=== PATIENT | male | born 1965 | race African-American/Black ===

== ENCOUNTER 2017-03-16 10:40 | Day surgery (SDC) | payer MEDICAID ==
[~2017-03-16 10:40] MED LIST: PROPOFOL INJ 200 MG/20 ML VIAL IV ONE
[2017-03-16] MEDS ORDERED: ALBUTEROL SULFATE 0.083% NEB 2.5 MG/3 ML AMPUL NEB ONE (11:52)
[2017-03-16] MEDS ORDERED: FENTANYL CITRATE INJ/PF 100 MCG/2 ML AMPUL ONE (11:55)
[2017-03-16] MEDS ORDERED: MIDAZOLAM 2 MG/2 ML INJ ONE (11:55)
[2017-03-16 12:56] VITALS: BP 170/106
--- NOTE | 2017-03-16 13:19 | Operative Report ---
Operative Report DATE OF SURGERY: 03/16/17 Operative Report: The risks, benefits and alternatives of the procedure including risks of bleeding, perforation requiring surgery are explained to the patient detail and informed consent was obtained. Patient was taken back to the endoscopy suite and placed in the left, lateral decubital position. Timeout was called. Performed medications administered. A rectal examination was done which did not reveal any masses, tears or fissures. An Olympus endoscope was inserted into the patient's rectum. The scope was then carefully advanced all the way to the cecum. The cecum was identified by the usual anatomical landmarks including the ileocecal valve as well as the appendiceal office. Photodocumentation was obtained. The scope was then sequentially pulled back via the rest segments of the colon including the ascending colon, hepatic flexure, transverse colon, splenic flexure, descending colon and finding to the rectosigmoid portions of the colon. Retroflexion maneuver was performed. The risks benefits and alternatives of the procedure explained to the patient in detail and informed consent is obtained. A GIF Olympus video scope was inserted into the patient's mouth and hypopharynx, the esophagus is identified intubated and insufflated, the scope was then advanced through the esophagus stomach and duodenum, retroflexion maneuver is done, the esophagus stomach and first and second portions of the duodenum examined PREOPERATIVE DIAGNOSIS: Dysphagia. Change of bowel habits POSTOPERATIVE DIAGNOSIS: Sigmoid polyp removed via snare polypectomy. Right side mucosal specimen obtained on the ascending colon rule out lymphocytic, microscopic, collagenous colitis. Internal hemorrhoids. Gastritis. Duodenitis. Biopsies obtained to rule out Helicobacter pylori OPERATION: Colonoscopy with snare polypectomy. Colonoscopy with biopsy. EGD with biopsy SURGEON: OSCAR LUNA ANESTHESIA: LMAC TISSUE REMOVED OR ALTERED: As described above. COMPLICATIONS: None. ESTIMATED BLOOD LOSS: None. INTRAOPERATIVE FINDINGS: As noted above. No diverticulosis noted PROCEDURE: Patient tolerated the procedure well. No immediate postprocedure complications are noted. Patient discharged in good condition. Discharge date 03/16/2017. Discharge diet: Regular. Discharge activity: Regular. 2-3 week follow-up to discuss findings. Patient is instructed to call the office or proceed to the emergency room should there be any further problems or questions. We will wait on pathology. 3-5 year surveillance for his colonoscopy.
== END 2017-03-16 12:50 | disposition home or self-care (01) ==
LOC: END 10:40
PROVIDERS: ATTEND Internal Medicine Gastroenterology
PROC: 0DB68ZX Excision of Stomach, Via Natural or Artificial Opening Endoscopic, Diagnostic (ICD-10-PCS; principal; 2017-03-16 13:30)
PROC: 0DBF8ZX Excision of Right Large Intestine, Via Natural or Artificial Opening Endoscopic, Diagnostic (ICD-10-PCS; 2017-03-16 13:30)
PROC: 0DBN8ZX Excision of Sigmoid Colon, Via Natural or Artificial Opening Endoscopic, Diagnostic (ICD-10-PCS; 2017-03-16 13:30)
DX: D12.5 Benign neoplasm of sigmoid colon (principal); K52.9 Noninfective gastroenteritis and colitis, unspecified; K29.50 Unspecified chronic gastritis without bleeding; K64.8 Other hemorrhoids; K29.80 Duodenitis without bleeding; M06.9 Rheumatoid arthritis, unspecified; I10 Essential (primary) hypertension; K21.9 Gastro-esophageal reflux disease without esophagitis; F17.210 Nicotine dependence, cigarettes, uncomplicated; J45.909 Unspecified asthma, uncomplicated; D86.9 Sarcoidosis, unspecified; F41.9 Anxiety disorder, unspecified; Z79.51 Long term (current) use of inhaled steroids; Z88.6 Allergy status to analgesic agent
CPT/HCPCS: 43239; 45380; 45385; 88305 ×2; J2250; J2704; 810; J3010

== ENCOUNTER → 2017-04-24 | Outpatient (CLI) | payer MEDICAID ==
--- NOTE | 2017-04-24 15:49 | RADIOLOGY REPORT (SQ) ---
EXAM DESCRIPTION: HIP LEFT AP/LATERAL COMPLETED DATE/TIME: 04/24/2017 2:37 pm REASON FOR STUDY: PAIN IN LEFT HIP M25.552 PAIN IN LEFT HIP COMPARISON: None. NUMBER OF VIEWS: Two views. TECHNIQUE: AP pelvis and additional frog-leg view of the left hip. LIMITATIONS: None. FINDINGS: MINERALIZATION: Normal. LEFT HIP: No fracture or dislocation. No worrisome bone lesions. Small sclerotic density in the sub trochanteric region consistent with bone island. RIGHT HIP: No fracture or dislocation. No worrisome bone lesions. PUBIS AND ISCHIUM: No fracture. PELVIS: No fracture. SACRUM: No fracture or dislocation. No worrisome bone lesions. LOWER LUMBAR SPINE: No fracture or dislocation. No worrisome bone lesions. No significant disc disea se. SOFT TISSUES: No findings. OTHER: No other significant finding. IMPRESSION: No significant abnormalities involving the left hip. TECHNICAL DOCUMENTATION: JOB ID: [id number] [employer]- All Rights Reserved
== END ==
LOC: OD 13:39
PROVIDERS: ATTEND Family Medicine
DX: M25.552 Pain in left hip (principal)

== ENCOUNTER 2017-09-14 14:40 | Emergency (ER) | payer MEDICAID ==
--- NOTE | 2017-09-14 15:55 | ER Document Report ---
ED General - General Chief Complaint: Hand Pain Stated Complaint: HAND,LEG PAIN Time Seen by Provider: 09/14/17 15:47 Mode of Arrival: Ambulatory Information source: Patient Notes: Patient states that he has chronic sarcoidosis. He states he is having a flareup of his chronic pain. He states he is currently out of his blood pressure medication as well as his pain medication. He specifically states he is out of lisinopril and Norvasc as well as Percocet. He states he does have hydrochlorothiazide. He states the pain in his right hand and left hip have been constant. They have been there for several months. He states he has had x -rays done by his primary care physician and no abnormality was identified on the x-ray. He has then been referred to [facility]. He states he is currently having trouble with his insurance so is been unable to see his doctor. He states he is going to the [employer] tomorrow to straighten out the insurance issues that he can be seen by his primary doctor. The pain radiates down his left leg and into his right arm. The pain is worse with movement and better with rest. They are moderate to severe. TRAVEL OUTSIDE OF THE [place] IN LAST 30 DAYS: No - Related Data Allergies/Adverse Reactions: aspirin [Aspirin] Allergy (Severe, Verified 03/16/17 11:04) RASH/itching Past Medical History - General Information source: Patient - Social History Smoking Status: Current Every Day Smoker Chew tobacco use (# tins/day): No Frequency of alcohol use: Occasional Drug Abuse: Marijuana Family History: Reviewed & Not Pertinent, Arthritis, CAD, CVA, DM, Hypertension , Malignancy Patient has suicidal ideation: No Patient has homicidal ideation: No - Past Medical History Cardiac Medical History: Reports: Hx Hypertension Denies: Hx Coronary Artery Disease, Hx Heart Attack Pulmonary Medical History: Reports: Hx Asthma Denies: Hx Bronchitis, Hx COPD, Hx Pneumonia Neurological Medical History: Denies: Hx Cerebrovascular Accident, Hx Seizures Renal/ Medical History: Denies: Hx Peritoneal Dialysis Musculoskeltal Medical History: Reports Hx Arthritis - SARCOIDOSIS, Reports Hx Musculoskeletal Trauma Skin Medical History: Reports Hx Psoriasis Traumatic Medical History: Reports: Hx Fractures Past Surgical History: Reports: Hx Tonsillectomy - Immunizations Immunizations up to date: Yes Hx Diphtheria, Pertussis, Tetanus Vaccination: Yes - <5 years Hx Pneumococcal Vaccination: 05/31/14 Review of Systems - Review of Systems Constitutional: denies: Chills, Fever Cardiovascular: denies: Chest pain, Palpitations Respiratory: denies: Cough, Short of breath Gastrointestinal: denies: Diarrhea, Vomiting Physical Exam - Vital signs Vitals: Temp Pulse Resp BP Pulse Ox 97.7 F 83 16 173/113 H 99 09/14/17 14:49 09/14/17 14:49 09/14/17 14:49 09/14/17 14:49 09/14/17 14:49 Interpretation: Hypertensive - General General appearance: Appears well, Alert In distress: None - HEENT Head: Normocephalic, Atraumatic Eyes: Normal Pupils: PERRL - Respiratory Respiratory status: No respiratory distress Chest status: Nontender Breath sounds: Normal Chest palpation: Normal - Cardiovascular Rhythm: Regular Heart sounds: Normal auscultation Murmur: No - Abdominal Inspection: Normal Distension: No distension Bowel sounds: Normal Tenderness: Nontender Organomegaly: No organomegaly - Back Back: Normal, Nontender - Extremities General upper extremity: Nontender, Normal color, Normal temperature, Other - Patient has some localized swelling on the right hand on the dorsal aspect of the thenar eminence. This area is nontender. He states this is due to sarcoid deposits. General lower extremity: Nontender, Normal color, Normal ROM, Normal temperature , Normal weight bearing. No: Curt's sign - Neurological Neuro grossly intact: Yes Cognition: Normal Orientation: AAOx4 Delfino Coma Scale Eye Opening: Spontaneous [place]ham Coma Scale Verbal: Oriented Delifno Coma Scale Motor: Obeys Commands Delfino Coma Scale Total: 15 Speech: Normal Motor strength normal: LUE, RUE, LLE, RLE Sensory: Normal - Psychological Associated symptoms: Normal affect, Normal mood - Skin Skin Temperature: Warm Skin Moisture: Dry Skin Color: Normal Course - Vital Signs Vital signs: Temp Pulse Resp BP Pulse Ox 97.7 F 83 16 173/113 H 99 09/14/17 14:49 09/14/17 14:49 09/14/17 14:49 09/14/17 14:49 09/14/17 14:49 Discharge - Discharge Clinical Impression: Sarcoid arthritis Condition: Stable Disposition: HOME, SELF-CARE Instructions: [facility] ([facility] Additional Instructions: Please call your primary care doctor as soon as possible to arrange follow-up. Prescriptions: Amlodipine Besylate [Norvasc 10 mg Tablet] 10 mg PO DAILY #30 tablet Lisinopril 10 mg PO DAILY #30 tablet Oxycodone HCl/Acetaminophen [Percocet 5-325 mg Tablet] 1 - 2 tab PO Q4H PRN #15 tablet PRN Reason:
[2017-09-14 16:05] VITALS: BP 170/100
== END 2017-09-14 16:03 | disposition home or self-care (01) ==
LOC: ER 14:40
DX: D86.86 Sarcoid arthropathy (principal); G89.29 Other chronic pain; T40.2X6A Underdosing of other opioids, initial encounter; I10 Essential (primary) hypertension; T46.1X6A Underdosing of calcium-channel blockers, initial encounter; T46.4X6A Underdosing of angiotensin-converting-enzyme inhibitors, initial encounter; Z91.128 Patient's intentional underdosing of medication regimen for other reason; Z91.14 Patient's other noncompliance with medication regimen; F17.200 Nicotine dependence, unspecified, uncomplicated; Z79.899 Other long term (current) drug therapy; Z88.6 Allergy status to analgesic agent; J45.909 Unspecified asthma, uncomplicated
CPT/HCPCS: 99283

== ENCOUNTER 2017-09-29 13:17 | Emergency (ER) | payer MEDICAID ==
[2017-09-29 13:34] VITALS: BP 164/100
--- NOTE | 2017-09-29 15:03 | ER Document Report ---
HPI - HPI Patient complains to provider of: med refills Onset: Other - Chronic Onset/Duration: Persistent Quality of pain: Achy, Sharp Severity: Severe Pain Level: 5 Context: She presented to ED for complaint of pain in his hand and leg. He states this is the pain that he always has due to his chronic conditions but he cannot get into the primary doctor. He states he did not want any Tylenol he did not want any ibuprofen he needs something stronger than that. I explained to him that I cannot give him narcotics for chronic pain management I would try to set him up with discharge planning to try to get him in to see a doctor for his chronic problems. Associated Symptoms: Other - Chronic pain to his arm and leg Exacerbated by: Movement, Walking Relieved by: Denies Similar symptoms previously: Yes Recently seen / treated by doctor: No - ROS ROS below otherwise negative: Yes - CONSTITUTIONAL Constitutional: DENIES: Fever, Chills - EENT EENT: DENIES: Sore Throat, Ear Pain, Nasal Drainage-Clear, Nasal Drainage- Purulent, Congestion, Eye problems - NEURO Neurology: DENIES: Headache, Weakness, Vision blurred, Dizzinesss / Vertigo - CARDIOVASCULAR Cardiovascular: DENIES: Chest pain - RESPIRATORY Respiratory: DENIES: Trouble Breathing, Coughing - GASTROINTESTINAL Gastrointestinal: DENIES: Abdominal Pain, Nausea, Patient vomiting, Diarrhea, Constipation, Black / Bloody Stools - URINARY Urinary: DENIES: Dysuria, Urgency, Frequency - REPRODUCTIVE Reproductive: DENIES: :, Postmenopausal, Abnormal bleeding / discharge - MUSCULOSKELETAL Musculoskeletal: REPORTS: Extremity pain. DENIES: Back Pain, Neck Pain, Swelling - DERM Skin Color: Normal Skin Problems: None Past Medical History - General Information source: Patient - Social History Smoking Status: Current Every Day Smoker Cigarette use (# per day): Yes Smoking Education Provided: Yes - 4 minutes Frequency of alcohol use: Rare Drug Abuse: Marijuana Family History: Arthritis, CAD, CVA, DM, Hypertension, Malignancy. denies: COPD , Hyperlipidemia, Thyroid Disfunction Patient has suicidal ideation: No Patient has homicidal ideation: No - Past Medical History Cardiac Medical History: Reports: Hx Hypertension Pulmonary Medical History: Reports: Hx Asthma EENT Medical History: Reports: None Neurological Medical History: Reports: None Endocrine Medical History: Reports: None Renal/ Medical History: Reports: None Malignancy Medical History: Reports None GI Medical History: Reports: None Musculoskeltal Medical History: Reports Hx Arthritis - SARCOIDOSIS, Reports Hx Musculoskeletal Deformity, Reports Hx Musculoskeletal Trauma Skin Medical History: Reports Hx Psoriasis Psychiatric Medical History: Reports: None Traumatic Medical History: Reports: Hx Fractures Infectious Medical History: Reports: None Past Surgical History: Reports: Hx Tonsillectomy - Immunizations Immunizations up to date: Yes Hx Diphtheria, Pertussis, Tetanus Vaccination: Yes - <5 years Hx Pneumococcal Vaccination: 05/31/14 Vertical Provider Document - CONSTITUTIONAL Agree With Documented VS: Yes Exam Limitations: No Limitations General Appearance: WD/WN, Mild Distress - INFECTION CONTROL TRAVEL OUTSIDE OF THE [place] IN LAST 30 DAYS: No - HEENT HEENT: Atraumatic, Normal ENT Exam, Normocephalic, PERRLA - NECK Neck: Normal Inspection, Supple - RESPIRATORY Respiratory: Breath Sounds Normal, No Respiratory Distress O2 Sat by Pulse Oximetry: 98 - CARDIOVASCULAR Cardiovascular: Regular Rate, Regular Rhythm - GI/ABDOMEN Gastrointestinal: Abdomen Soft, Abdomen Non-Tender, Abnormal Bowel Sounds - BACK Back: Normal Inspection - MUSCULOSKELETAL/EXTREMETIES Musculoskeletal/Extremeties: MAEW - Walks with a cane but this is normal complains of pain to his arms and legs and hands, Tender, No Edema - NEURO Level of Consciousness: Awake, Alert, Appropriate - DERM Integumentary: Warm, Dry, No Rash Course - Re-evaluation Re-evalutation: 09/30/17 02:02 Patient became very angry with the nurse when he found that he was not going get narcotics and left before getting his discharge papers. - Vital Signs Vital signs: Temp Pulse Resp BP Pulse Ox 98.3 F 77 20 164/100 H 98 09/29/17 13:32 09/29/17 13:32 09/29/17 13:32 09/29/17 13:32 09/29/17 13:32 Discharge - Discharge Clinical Impression: Medication refill Condition: Stable Disposition: HOME, SELF-CARE Additional Instructions: He was seen today because you stated you need your medications for your pain and your doctor visits for your sarcoidosis as you are having trouble seeing your doctor I will set you up with a sr. merchandise planner to call you and try to help you work of the problems with your primary doctor. He states today you are having pain in your hands and legs due to chronic pain from sarcoidosis. He states he needs surgery to help you with your sarcoidosis. You states you have enough lisinopril and prednisone at this time to last you but you need your pain medicine. I have asked discussed with you that I cannot give you narcotics for chronic pain management. FOLLOW-UP CARE: If you have been referred to a physician for follow-up care, call the physician s office for an appointment as you were instructed or within the next two days. If you experience worsening or a significant change in your symptoms, notify the physician immediately or return to the Emergency Department at any time for re-evaluation. Forms: Elevated Blood Pressure, Smoking Cessation Education
== END 2017-09-29 15:12 | disposition home or self-care (01) ==
LOC: ER 13:17
DX: Z76.0 Encounter for issue of repeat prescription (principal); M79.603 Pain in arm, unspecified; M79.606 Pain in leg, unspecified; F17.210 Nicotine dependence, cigarettes, uncomplicated; Z79.899 Other long term (current) drug therapy
CPT/HCPCS: 99281; 99406

== ENCOUNTER 2017-10-14 09:56 | Emergency (ER) | payer MEDICAID ==
[2017-10-14 11:26] LABS: ABSOLUTE EOSINOPHILS # (AUTO) 0.1 10^3/uL (0.0-0.6); ABSOLUTE LYMPHOCYTES (AUTO) 1.2 10^3/uL (0.5-4.7); ABSOLUTE MONOCYTES (AUTO) 0.5 10^3/uL (0.1-1.4); ABSOLUTE NEUT (AUTO) 1.4 10^3/uL (1.7-8.2); BASOPHILS % (AUTO) 0.7 % (0-2); EOSINOPHILS % (AUTO) 4.3 % (0-6); HEMATOCRIT 39.3 % (37.9-51.0); HEMOGLOBIN 13.5 g/dL (13.5-17.0); LYMPHOCYTES % (AUTO) 36.4 % (13-45); MEAN CORPUSCULAR HEMOGLOBIN 30.6 pg (27.0-33.4); MEAN CORPUSCULAR HGB CONC 34.4 g/dL (32.0-36.0); MEAN CORPUSCULAR VOLUME 89 fl (80-97); MONOCYTES % (AUTO) 15.2 % (3-13); PLATELET COUNT 126 10^3/uL (150-450); RED BLOOD COUNT 4.42 10^6/uL (4.35-5.55); RED CELL DISTRIBUTION WIDTH 12.9 % (11.5-14.0); SEGMENTED NEUTROPHILS % (AUTO) 43.4 % (42-78); TOTAL CELLS COUNTED % (AUTO) 100 %; WHITE BLOOD COUNT 3.3 10^3/uL (4.0-10.5)
[2017-10-14 11:47] LABS: ALANINE AMINOTRANSFERASE 34 U/L (21-72); ALBUMIN 4.3 g/dL (3.5-5.0); ALKALINE PHOSPHATASE 60 U/L (38-126); ANION GAP 9 (5-19); ASPARTATE AMINO TRANSFERASE 32 U/L (17-59); BILIRUBIN,DIRECT 0.4 mg/dL (0.0-0.4); BILIRUBIN,TOTAL 0.4 mg/dL (0.2-1.3); BLOOD UREA NITROGEN 20 mg/dL (7-20); CALCIUM 9.9 mg/dL (8.4-10.2); CARBON DIOXIDE 26 mmol/L (22-30); CHLORIDE 107 mmol/L (98-107); GLUCOSE 99 mg/dL (75-110); POTASSIUM 4.3 mmol/L (3.6-5.0); SODIUM 141.6 mmol/L (137-145); TOTAL PROTEIN 7.4 g/dL (6.3-8.2)
--- NOTE | 2017-10-14 12:47 | ER Document Report ---
ED General - General Chief Complaint: Pain All Over Stated Complaint: BODY PAIN Time Seen by Provider: 10/14/17 11:00 Mode of Arrival: Ambulatory Information source: Patient Notes: Patient presents stating that he is having diffuse body aches from his sarcoid. He states his pain is worse with exertion and better with rest. He states it does radiate throughout his body. It is moderate and intermittent. He denies any recent fevers cough cold or congestion. He states he does not currently have a primary care physician. He states he is trying to get an appointment with a early childhood educator aide to manage his sarcoid has been unable to do so so far. TRAVEL OUTSIDE OF THE [place] IN LAST 30 DAYS: No - Related Data Allergies/Adverse Reactions: aspirin [Aspirin] Allergy (Severe, Verified 10/14/17 09:58) RASH/itching Past Medical History - General Information source: Patient - Social History Smoking Status: Current Every Day Smoker Chew tobacco use (# tins/day): No Frequency of alcohol use: Occasional Drug Abuse: Marijuana Family History: Arthritis, CAD, CVA, DM, Hypertension, Malignancy. denies: COPD , Hyperlipidemia, Thyroid Disfunction Patient has suicidal ideation: No Patient has homicidal ideation: No - Past Medical History Cardiac Medical History: Reports: Hx Hypertension Denies: Hx Coronary Artery Disease, Hx Heart Attack Pulmonary Medical History: Reports: Hx Asthma Denies: Hx Bronchitis, Hx COPD, Hx Pneumonia Neurological Medical History: Denies: Hx Cerebrovascular Accident, Hx Seizures Renal/ Medical History: Denies: Hx Peritoneal Dialysis Musculoskeltal Medical History: Reports Hx Arthritis - SARCOIDOSIS, Reports Hx Musculoskeletal Deformity, Reports Hx Musculoskeletal Trauma Skin Medical History: Reports Hx Psoriasis Traumatic Medical History: Reports: Hx Fractures Past Surgical History: Reports: Hx Tonsillectomy - Immunizations Immunizations up to date: Yes Hx Diphtheria, Pertussis, Tetanus Vaccination: Yes - <5 years Hx Pneumococcal Vaccination: 05/31/14 Review of Systems - Review of Systems Constitutional: denies: Chills, Fever Cardiovascular: denies: Chest pain, Palpitations Respiratory: Cough. denies: Short of breath -: Yes All other systems reviewed and negative Physical Exam - Vital signs Vitals: Temp Pulse Resp BP Pulse Ox 97.9 F 62 18 176/117 H 99 10/14/17 10:13 10/14/17 10:13 10/14/17 10:13 10/14/17 10:13 10/14/17 10:13 Interpretation: Hypertensive Course - Re-evaluation Re-evalutation: 10/14/17 12:43 Patient's laboratories are unremarkable for acute changes. I will refer the patient to her primary care physician. I will also start the patient on a second blood pressure medication as well as give him a refill of his lisinopril. - Vital Signs Vital signs: Temp Pulse Resp BP Pulse Ox 97.9 F 62 18 176/117 H 99 10/14/17 10:13 10/14/17 10:13 10/14/17 10:13 10/14/17 10:13 10/14/17 10:13 - Laboratory Result Diagrams: 10/14/17 11:15 10/14/17 11:15 Laboratory results interpreted by me: 10/14/17 11:15 WBC 3.3 L Plt Count 126 L Monocytes % 15.2 H Absolute Neutrophils 1.4 L Discharge - Discharge Clinical Impression: Sarcoidosis, Uncontrolled hypertension Condition: Stable Disposition: HOME, SELF-CARE Instructions: High Blood Pressure, Requiring Treatment ([facility]) Prescriptions: Hydrocodone/Acetaminophen [Torrey 5-325 mg Tablet] 1 tab PO Q6 PRN 3 Days #12 tablet PRN Reason: Lisinopril/Hydrochlorothiazide [Lisinopril-Hctz 20-12.5 mg Tab] 1 each PO DAILY 30 Days #30 tablet Referrals: BERTIN NIETO MD [ACTIVE STAFF] - Follow up tomorrow
[2017-10-14 13:01] VITALS: BP 188/109
[2017-10-14] MEDS ORDERED: LISINOPRIL 10 MG TABLET PO ONE (13:01)
== END 2017-10-14 13:01 | disposition home or self-care (01) ==
LOC: ER 09:56
DX: D86.9 Sarcoidosis, unspecified (principal); I10 Essential (primary) hypertension; M79.1 Myalgia; F17.200 Nicotine dependence, unspecified, uncomplicated; Z88.6 Allergy status to analgesic agent
CPT/HCPCS: 99283; 36415; 85025; 80053; J3490

== ENCOUNTER 2017-11-01 17:13 | Emergency (ER) | payer MEDICAID ==
[2017-11-01] MEDS ORDERED: NORMAL SALINE 1000 ML 1,000 ML IV ONE (17:59)
[2017-11-01] MEDS ORDERED: ONDANSETRON HCL INJ/PF 4 MG/2 ML SDV IV ONE (18:00)
[2017-11-01] MEDS ORDERED: FENTANYL CITRATE INJ/PF 250 MCG/5 ML AMPULE IV ONE (18:01)
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
[2017-11-01] MEDS ORDERED: FENTANYL CITRATE INJ/PF 100 MCG/2 ML AMPUL IV ONE (18:17)
[2017-11-01 18:24] LABS: ABSOLUTE LYMPHOCYTES (AUTO) 1.1 10^3/uL (0.5-4.7); ABSOLUTE MONOCYTES (AUTO) 0.3 10^3/uL (0.1-1.4); ABSOLUTE NEUT (AUTO) 7.4 10^3/uL (1.7-8.2); BASOPHILS % (AUTO) 0.3 % (0-2); HEMATOCRIT 34.7 % (37.9-51.0); HEMOGLOBIN 11.9 g/dL (13.5-17.0); LYMPHOCYTES % (AUTO) 12.4 % (13-45); MEAN CORPUSCULAR HEMOGLOBIN 30.7 pg (27.0-33.4); MEAN CORPUSCULAR HGB CONC 34.4 g/dL (32.0-36.0); MEAN CORPUSCULAR VOLUME 89 fl (80-97); MONOCYTES % (AUTO) 3.5 % (3-13); PLATELET COUNT 196 10^3/uL (150-450); RED BLOOD COUNT 3.89 10^6/uL (4.35-5.55); RED CELL DISTRIBUTION WIDTH 13.2 % (11.5-14.0); SEGMENTED NEUTROPHILS % (AUTO) 83.8 % (42-78); TOTAL CELLS COUNTED % (AUTO) 100 %; WHITE BLOOD COUNT 8.9 10^3/uL (4.0-10.5)
[2017-11-01 18:39] LABS: ALANINE AMINOTRANSFERASE 52 U/L (21-72); ALBUMIN 4.7 g/dL (3.5-5.0); ALKALINE PHOSPHATASE 81 U/L (38-126); ANION GAP 13 (5-19); ASPARTATE AMINO TRANSFERASE 45 U/L (17-59); BILIRUBIN,DIRECT 0.4 mg/dL (0.0-0.4); BLOOD UREA NITROGEN 17 mg/dL (7-20); CALCIUM 9.6 mg/dL (8.4-10.2); CARBON DIOXIDE 24 mmol/L (22-30); CHLORIDE 107 mmol/L (98-107); GLUCOSE 142 mg/dL (75-110); LIPASE 106.9 U/L (23-300); POTASSIUM 4.7 mmol/L (3.6-5.0); SODIUM 143.8 mmol/L (137-145); TOTAL PROTEIN 7.7 g/dL (6.3-8.2)
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
[2017-11-01] MEDS ORDERED: ACETAMINOPHEN 325 MG TABLET PO ONE (19:33)
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
--- NOTE | 2017-11-01 20:28 | RADIOLOGY REPORT (SQ) ---
EXAM DESCRIPTION: CT HEAD WITHOUT COMPLETED DATE/TIME: 11/01/2017 8:14 pm REASON FOR STUDY: head trauma COMPARISON: None. TECHNIQUE: Axial images acquired through the brain without intravenous contrast. Images reviewed wi th bone, brain and subdural windows. Images stored on PACS. All CT scanners at this facility use dose modulation, iterative reconstruction, and/or weight based d osing when appropriate to reduce radiation dose to as low as reasonably achievable (ALARA). [facility]: Dose Right [facility]: CareDose [facility]: Dose Right [facility]: Teradose 4D [facility]: [employer] RADIATION DOSE: CT Rad equipment meets quality standard of care and radiation dose reduction techniq ues were employed. CTDIvol: 64.6 mGy. DLP: 1163 mGy-cm. mGy. LIMITATIONS: None. FINDINGS: VENTRICLES: Normal size and contour. CEREBRUM: No masses. No hemorrhage. No midline shift. No evidence for acute infarction. Normal gra y/white matter differentiation. No areas of low density in the white matter. CEREBELLUM: No masses. No hemorrhage. No alteration of density. No evidence for acute infarction. EXTRAAXIAL SPACES: No fluid collections. No masses. ORBITS AND GLOBE: No intra- or extraconal masses. Normal contour of globe without masses. CALVARIUM: No fracture. PARANASAL SINUSES: No fluid or mucosal thickening. SOFT TISSUES: No mass or hematoma. OTHER: No other significant finding. IMPRESSION: NORMAL BRAIN CT WITHOUT CONTRAST. EVIDENCE OF ACUTE STROKE: NO. COMMENT: Quality ID # [id number]: Final reports with documentation of one or more dose reduction techniques (e.g., Automated exposure control, adjustment of the mA and/or kV according to patient size, use of iterative reconstruction technique) TECHNICAL DOCUMENTATION: JOB ID: [id number] [employer]- All Rights Reserved Reading location - IP/workstation name: [email or web address]
--- NOTE | 2017-11-01 20:39 | RADIOLOGY REPORT (SQ) ---
EXAM DESCRIPTION: CT ABD/PELVIS WITH IV ONLY COMPLETED DATE/TIME: 11/01/2017 8:14 pm REASON FOR STUDY: trauma, diffuse abd tenderness COMPARISON: None. TECHNIQUE: CT scan of the abdomen and pelvis performed using helical scanning technique with dynamic intravenous contrast injection. No oral contrast. Images reviewed with lung, soft tissue, and bone windows. Reconstructed coronal and sagittal MPR images reviewed. Delayed images for evaluation of the urinary system also acquired. All images stored on PACS. All CT scanners at this facility use dose modulation, iterative reconstruction, and/or weight based d osing when appropriate to reduce radiation dose to as low as reasonably achievable (ALARA). [facility]: Dose Right [facility]: CareDose [facility]: Dose Right [facility]: Teradose 4D [facility]: [employer] CONTRAST TYPE AND DOSE: contrast/concentration: Isovue 300.00 mg/ml; Total Contrast Delivered: 97.0 ml; Total Saline Delivered: 72.0 ml RENAL FUNCTION: BUN 17 creatinine 1.6 RADIATION DOSE: CT Rad equipment meets quality standard of care and radiation dose reduction techniq ues were employed. CTDIvol: 6.1 - 8.7 mGy. DLP: 818 mGy-cm.. LIMITATIONS: None. FINDINGS: LOWER CHEST: Trace right pleural effusion and associated airspace disease. LIVER: Normal size. No masses. No dilated ducts. SPLEEN: Normal size. No focal lesions. PANCREAS: No masses. No significant calcifications. No adjacent inflammation or peripancreatic fluid collections. Pancreatic duct not dilated. GALLBLADDER: No identified stones by CT criteria. No inflammatory changes to suggest cholecystitis. ADRENAL GLANDS: No significant masses or asymmetry. RIGHT KIDNEY AND URETER: 6.5 cm heterogeneous fluid collection in the juan renal space displacing kid julio anteriorly. There is blurring of the margins of the lower pole and interpolar cortex. No eviden ce of extravasation of contrast or urine. LEFT KIDNEY AND URETER: No solid masses. No significant calcifications. No hydronephrosis or hydr oureter. AORTA AND VESSELS: No aneurysm. No dissection. Renal arteries, SMA, celiac without stenosis. RETROPERITONEUM: Free fluid in the anterior pararenal space measuring about 31 HU. BOWEL AND PERITONEAL CAVITY: Free fluid surrounding the liver measuring about 39 the HU. APPENDIX: Not visualized. PELVIS: Small amount of free fluid. Normal urinary bladder. ABDOMINAL WALL: No masses. No hernias. BONES: No fracture. OTHER: No other significant finding. IMPRESSION: 1. Grade 3/5 right renal laceration (ASST scale) with expanding subcapsular hematoma. TECHNICAL DOCUMENTATION: JOB ID: [id number] Quality ID # [id number]: Final reports with documentation of one or more dose reduction techniques (e.g., Au tomated exposure control, adjustment of the mA and/or kV according to patient size, use of iterative reconstruction technique) 2010 [employer]- All Rights Reserved Reading location - IP/workstation name: [email or web address]
[2017-11-01] MEDS ORDERED: FENTANYL CITRATE INJ/PF 100 MCG/2 ML AMPUL IV PRN (21:04)
[2017-11-01 22:36] VITALS: BP 147/94
== END 2017-11-01 22:30 | disposition short-term general hospital (02) ==
LOC: ER 17:13
DX: D62 Acute posthemorrhagic anemia (principal); S37.031A Laceration of right kidney, unspecified degree, initial encounter; S00.81XA Abrasion of other part of head, initial encounter; S09.90XA Unspecified injury of head, initial encounter; R10.9 Unspecified abdominal pain; F17.200 Nicotine dependence, unspecified, uncomplicated; Y04.2XXA Assault by strike against or bumped into by another person, initial encounter; Z88.6 Allergy status to analgesic agent; I10 Essential (primary) hypertension
CPT/HCPCS: 99285; 96361; 96374; 96375; 36415; 83690; 85025; 80053; 71045; 70450; 74177; J3490; J3010; J2405; J7030

== ENCOUNTER 2017-11-17 09:57 | Emergency (ER) | payer MEDICAID ==
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
[2017-11-17] MEDS ORDERED: OXYCODONE-ACETAMINOPHEN 5-325 MG TABLET PO ONE (11:14)
[2017-11-17 11:27] LABS: ABSOLUTE EOSINOPHILS # (AUTO) 0.1 10^3/uL (0.0-0.6); ABSOLUTE LYMPHOCYTES (AUTO) 0.9 10^3/uL (0.5-4.7); ABSOLUTE MONOCYTES (AUTO) 0.5 10^3/uL (0.1-1.4); ABSOLUTE NEUT (AUTO) 1.8 10^3/uL (1.7-8.2); BASOPHILS % (AUTO) 0.6 % (0-2); EOSINOPHILS % (AUTO) 2.3 % (0-6); HEMATOCRIT 31.5 % (37.9-51.0); HEMOGLOBIN 10.9 g/dL (13.5-17.0); LYMPHOCYTES % (AUTO) 27.8 % (13-45); MEAN CORPUSCULAR HEMOGLOBIN 31.5 pg (27.0-33.4); MEAN CORPUSCULAR HGB CONC 34.8 g/dL (32.0-36.0); MEAN CORPUSCULAR VOLUME 91 fl (80-97); MONOCYTES % (AUTO) 14.8 % (3-13); PLATELET COUNT 243 10^3/uL (150-450); RED BLOOD COUNT 3.48 10^6/uL (4.35-5.55); SEGMENTED NEUTROPHILS % (AUTO) 54.5 % (42-78); TOTAL CELLS COUNTED % (AUTO) 100 %; WHITE BLOOD COUNT 3.3 10^3/uL (4.0-10.5)
[2017-11-17 11:52] LABS: ANION GAP 8 (5-19); BLOOD UREA NITROGEN 15 mg/dL (7-20); CALCIUM 9.1 mg/dL (8.4-10.2); CARBON DIOXIDE 25 mmol/L (22-30); CHLORIDE 111 mmol/L (98-107); GLUCOSE 87 mg/dL (75-110); POTASSIUM 4.4 mmol/L (3.6-5.0); SODIUM 143.8 mmol/L (137-145)
[2017-11-17 12:19] VITALS: BP 172/108
== END 2017-11-17 12:22 | disposition home or self-care (01) ==
LOC: ER 09:57
DX: G89.29 Other chronic pain (principal); M25.50 Pain in unspecified joint; I10 Essential (primary) hypertension; Z79.899 Other long term (current) drug therapy; D86.9 Sarcoidosis, unspecified; F17.200 Nicotine dependence, unspecified, uncomplicated; J45.909 Unspecified asthma, uncomplicated
CPT/HCPCS: 36415; 80048; 85025; 99283

== ENCOUNTER 2018-07-24 17:15 | Emergency (ER) | payer MEDICAID ==
--- NOTE | 2018-07-24 19:18 | ER Document Report ---
ED Medical Screen (RME) - General Chief Complaint: Swelling Stated Complaint: SWELLING Time Seen by Provider: 07/24/18 19:11 Mode of Arrival: Ambulatory Information source: Patient Notes: 52-year-old male presented to ED for complaint of swelling and pain to his right hand and left lower extremities. He states he had his Medicaid stopped a couple months ago so has not been able to keep his appointments with [facility] or his chronic pain management. He states he did get paperwork and he is getting it all reinstated so he can follow-up with his doctors. He states he is here today because his blood pressure is going up and he is taking his blood pressure medicine as ordered he is got swelling to his right hand and left lower extremity and has an increase in his pain. He states he was diagnosed with rheumatoid arthritis and given methotrexate and ended up having a stroke from [facility] to [place] and they told him that he did not have rheumatoid arthritis but had sarcoidosis that does not affect his lungs. He states he is here today because he is in so much pain in his blood pressure is going up. She is alert and oriented respirations are regular and unlabored he is able to speak in full sentences and he walks with a even steady gait. I have greeted and performed a rapid initial assessment of this patient. A comprehensive ED assessment and evaluation of the patient, analysis of test results and completion of medical decision making process will be conducted by an additional ED providers. TRAVEL OUTSIDE OF THE [place] IN LAST 30 DAYS: No - Related Data Allergies/Adverse Reactions: aspirin [Aspirin] Allergy (Severe, Verified 11/17/17 10:01) RASH/itching Past Medical History - Past Medical History Cardiac Medical History: Reports: Hx Hypertension Denies: Hx Coronary Artery Disease, Hx Heart Attack Pulmonary Medical History: Reports: Hx Asthma Denies: Hx Bronchitis, Hx COPD, Hx Pneumonia Neurological Medical History: Denies: Hx Cerebrovascular Accident, Hx Seizures Renal/ Medical History: Denies: Hx Peritoneal Dialysis Musculoskeltal Medical History: Reports Hx Arthritis - SARCOIDOSIS, Reports Hx Musculoskeletal Deformity, Reports Hx Musculoskeletal Trauma Skin Medical History: Reports Hx Psoriasis Traumatic Medical History: Reports: Hx Fractures Past Surgical History: Reports: Hx Tonsillectomy - Immunizations Immunizations up to date: Yes Hx Diphtheria, Pertussis, Tetanus Vaccination: Yes - <5 years Physical Exam - Vital signs Vitals: Temp Pulse Resp BP Pulse Ox 97.6 F 78 18 157/104 H 97 07/24/18 17:20 07/24/18 17:20 07/24/18 17:20 07/24/18 17:20 07/24/18 17:20 Course - Vital Signs Vital signs: Temp Pulse Resp BP Pulse Ox 97.6 F 78 18 157/104 H 97 07/24/18 17:20 07/24/18 17:20 07/24/18 17:20 07/24/18 17:20 07/24/18 17:20
--- NOTE | 2018-07-24 20:02 | RADIOLOGY REPORT (SQ) ---
EXAM DESCRIPTION: HAND RIGHT 3 VIEWS COMPLETED DATE/TIME: 07/24/2018 7:46 pm REASON FOR STUDY: pain and swelling COMPARISON: 06/07/2007 EXAM PARAMETERS: NUMBER OF VIEWS: Three views. TECHNIQUE: AP, lateral and oblique radiographic images acquired of the right hand. LIMITATIONS: None. FINDINGS: MINERALIZATION: Unchanged. BONES: Re- demonstration of a well-healed fracture deformity of the 5th metacarpal. Chronic fracture of the radial base of the thumb distal phalanx. Persistently abnormal mineralization of the 1st met acarpal head, thumb proximal phalanx head, and thumb distal phalanx. Osseous mineralization and alig nment is otherwise normal. JOINTS: No effusions. SOFT TISSUES: No soft tissue swelling. No foreign body. OTHER: No other significant finding. IMPRESSION: Stable radiographic appearance of the hand. No evidence of acute osseous abnormality. TECHNICAL DOCUMENTATION: JOB ID: [id number]- All Rights Reserved Reading location - IP/workstation name: [email or web address]
[2018-07-24 20:19] LABS: ABSOLUTE EOSINOPHILS # (AUTO) 0.1 10^3/uL (0.0-0.6); ABSOLUTE LYMPHOCYTES (AUTO) 1.6 10^3/uL (0.5-4.7); ABSOLUTE MONOCYTES (AUTO) 0.6 10^3/uL (0.1-1.4); ABSOLUTE NEUT (AUTO) 2.5 10^3/uL (1.7-8.2); BASOPHILS % (AUTO) 0.7 % (0-2); EOSINOPHILS % (AUTO) 2.2 % (0-6); HEMATOCRIT 41.6 % (37.9-51.0); HEMOGLOBIN 14.6 g/dL (13.5-17.0); LYMPHOCYTES % (AUTO) 32.8 % (13-45); MEAN CORPUSCULAR HEMOGLOBIN 30.5 pg (27.0-33.4); MEAN CORPUSCULAR HGB CONC 35.1 g/dL (32.0-36.0); MEAN CORPUSCULAR VOLUME 87 fl (80-97); MONOCYTES % (AUTO) 12.7 % (3-13); PLATELET COUNT 174 10^3/uL (150-450); RED BLOOD COUNT 4.78 10^6/uL (4.35-5.55); RED CELL DISTRIBUTION WIDTH 13.8 % (11.5-14.0); SEGMENTED NEUTROPHILS % (AUTO) 51.6 % (42-78); TOTAL CELLS COUNTED % (AUTO) 100 %; WHITE BLOOD COUNT 4.8 10^3/uL (4.0-10.5)
[2018-07-24 20:27] LABS: APPEARANCE,URINE CLEAR; BILIRUBIN,URINE NEGATIVE (NEGATIVE); COLOR,URINE COLORLESS; GLUCOSE, URINE NEGATIVE (NEGATIVE); KETONES,URINE NEGATIVE (NEGATIVE); LEUKOCYTE ESTERASE,URINE TRACE (NEGATIVE); NITRITE,URINE POSITIVE (NEGATIVE); PROTEIN,URINE NEGATIVE (NEGATIVE); UROBILINOGEN,URINE NEGATIVE mg/dL (<2.0)
[2018-07-24 20:30] LABS: ALANINE AMINOTRANSFERASE 23 U/L (21-72); ALBUMIN 4.6 g/dL (3.5-5.0); ALKALINE PHOSPHATASE 84 U/L (38-126); ANION GAP 12 (5-19); ASPARTATE AMINO TRANSFERASE 35 U/L (17-59); BILIRUBIN,DIRECT 0.3 mg/dL (0.0-0.4); BILIRUBIN,TOTAL 0.7 mg/dL (0.2-1.3); BLOOD UREA NITROGEN 22 mg/dL (7-20); CALCIUM 9.7 mg/dL (8.4-10.2); CARBON DIOXIDE 26 mmol/L (22-30); CHLORIDE 104 mmol/L (98-107); GLUCOSE 90 mg/dL (75-110); POTASSIUM 3.8 mmol/L (3.6-5.0); SODIUM 142.2 mmol/L (137-145); TOTAL PROTEIN 8.1 g/dL (6.3-8.2)
[2018-07-24] MEDS ORDERED: PREDNISONE 20 MG TABLET PO ONE (21:27)
[2018-07-24] MEDS ORDERED: HYDROCODONE/ACETAMINOPHEN 5-325 MG (6 TAB/ER DISP) PO PRN (21:29)
--- NOTE | 2018-07-24 21:29 | ER Document Report ---
ED General - General Chief Complaint: Swelling Stated Complaint: SWELLING Time Seen by Provider: 07/24/18 19:11 Mode of Arrival: Ambulatory Notes: Patient is a 52-year-old male with sarcoidosis that presents to the emergency department for chief complaint of hand pain, leg pain, and rash. Patient states that he has not been on his medication for sarcoidosis in some time, as he was in present, and he lost his insurance. He has not had medication for approximately 3 months. He has been noticing more of a rash on his right elbow , and the back of his leg but seemingly getting worse. He has had increased arthralgias, and pain in his hand and in his left leg. Denies noting any swelling that is new in his hand or in his lower extremities. Currently rates his pain as a 6 out of 10 describes as a constant aching sensation, and across multiple joints. He denies having any chest pain or shortness of breath, or changes in his urinary patterns. Past Medical History: Sarcoidosis, hypertension Past Surgical History: Hernia repair Social History: Denies current tobacco, alcohol or drug use. Family History: Reviewed and noncontributory for presenting illness Allergies: Reviewed, see documented allergy list. REVIEW OF SYSTEMS: Other than noted above, the 12 point review of systems was reviewed with the patient and were negative, all pertinent findings are included in the HPI. PHYSICAL EXAMINATION: Vital signs reviewed, nursing noted reviewed. GENERAL: Well-appearing, well-nourished and in no acute distress. HEAD: Atraumatic, normocephalic. EYES: Eyes appear normal, extraocular movements intact, sclera anicteric, conjunctiva are normal. ENT: nares patent, oropharynx clear without exudates. Moist mucous membranes. NECK: Normal range of motion, supple without lymphadenopathy LUNGS: Breath sounds clear to auscultation bilaterally and equal. No wheezes rales or rhonchi. HEART: Regular rate and rhythm without murmurs ABDOMEN: Soft, nontender, normoactive bowel sounds. No rebound, guarding, or rigidity. No masses appreciated. EXTREMITIES: Patient has deformities noted to the right hand particularly at the first MCP, as well as the fifth MCP, he has swelling at his wrist joint as well, but this is nontender to palpate, not erythematous, and according to the patient this is chronic. He is noted to have a non-erythematous plaque like rash, on his extensor surface of his right elbow, and over the posterior aspect of the right lower extremity. No evidence of infection, no drainage at the site of these lesions. Overall the patient has good range of motion of all extremities, neurovascularly intact distally. NEUROLOGICAL: No focal neurological deficits. Moves all extremities spontaneously Motor and sensory grossly intact on exam. PSYCH: Normal mood, normal affect. SKIN: Warm, Dry, normal turgor, rash as described above TRAVEL OUTSIDE OF THE [place] IN LAST 30 DAYS: No - Related Data Allergies/Adverse Reactions: aspirin [Aspirin] Allergy (Severe, Verified 11/17/17 10:01) RASH/itching Past Medical History - General Information source: Patient - Social History Smoking Status: Unknown if Ever Smoked Family History: Arthritis, CAD, CVA, DM, Hypertension, Malignancy. denies: COPD , Hyperlipidemia, Thyroid Disfunction Patient has suicidal ideation: No Patient has homicidal ideation: No - Past Medical History Cardiac Medical History: Reports: Hx Hypertension Denies: Hx Coronary Artery Disease, Hx Heart Attack Pulmonary Medical History: Reports: Hx Asthma Denies: Hx Bronchitis, Hx COPD, Hx Pneumonia Neurological Medical History: Denies: Hx Cerebrovascular Accident, Hx Seizures Renal/ Medical History: Denies: Hx Peritoneal Dialysis Musculoskeletal Medical History: Reports Hx Arthritis - SARCOIDOSIS, Reports Hx Musculoskeletal Deformity, Reports Hx Musculoskeletal Trauma Skin Medical History: Reports Hx Psoriasis Traumatic Medical History: Reports: Hx Fractures Past Surgical History: Reports: Hx Tonsillectomy - Immunizations Immunizations up to date: Yes Hx Diphtheria, Pertussis, Tetanus Vaccination: Yes - <5 years Hx Pneumococcal Vaccination: 05/31/14 Physical Exam - Vital signs Vitals: Temp Pulse Resp BP Pulse Ox 97.6 F 78 18 157/104 H 97 07/24/18 17:20 07/24/18 17:20 07/24/18 17:20 07/24/18 17:20 07/24/18 17:20 Course - Re-evaluation Re-evalutation: Patient seen and examined vital signs reviewed. Laboratory data and imaging were ordered as appropriate for the patient's presenting symptoms and complaint, with consideration of any critical or life threatening conditions that may be associated with their obtained history and exam as noted above. Patient was treated with oral prednisone, to help with his flare of sarcoidosis , he did have a slight bump in his creatinine from prior, his urinalysis demonstrated nitrite-positive urine, however the patient did not have any symptoms of dysuria, or urinary tract infection, or discharge, we will send this off for culture The patient was re-evaluated and was stable, discharged home with a prescription for oral prednisone 60 mg daily for 4 additional days, and given 6 5 mg [place] to take for pain if needed. He is advised to follow-up with rheumatology, patient states he has an appointment coming up this week, with a primary care physician. X-rays were obtained of the patient's right hand, that were unchanged deformities, from prior, no new injuries, or concern. Evaluation was most consistent with leg pain, hand pain and rash, consistent with flare of the patient's sarcoidosis Results were discussed with the patient at this point, after careful consideration I feel that that patient can be discharged from the emergency department, the patient was educated treatments and reasons to return to the emergency department based on their presumed diagnosis as noted above, they were advised to followup with a primary care physician in 2-3 days. Patient was agreeable to plan of care. *Note is created using voice recognition software and may contain spelling, syntax or grammatical errors. Laboratory 07/24/18 07/24/18 07/24/18 20:09 20:09 20:09 WBC 4.8 RBC 4.78 Hgb 14.6 Hct 41.6 MCV 87 MCH 30.5 MCHC 35.1 RDW 13.8 Plt Count 174 Seg Neutrophils % 51.6 Lymphocytes % 32.8 Monocytes % 12.7 Eosinophils % 2.2 Basophils % 0.7 Absolute Neutrophils 2.5 Absolute Lymphocytes 1.6 Absolute Monocytes 0.6 Absolute Eosinophils 0.1 Absolute Basophils 0.0 Sodium 142.2 Potassium 3.8 Chloride 104 Carbon Dioxide 26 Anion Gap 12 BUN 22 H Creatinine 1.27 H Est GFR ( Amer) > 60 Est GFR (Non-Af Amer) 59 L Glucose 90 Calcium 9.7 Total Bilirubin 0.7 Direct Bilirubin 0.3 Neonat Total Bilirubin Not Reportable Neonat Direct Bilirubin Not Reportable Neonat Indirect Bili Not Reportable AST 35 ALT 23 Alkaline Phosphatase 84 Total Protein 8.1 Albumin 4.6 Urine Color COLORLESS Urine Appearance CLEAR Urine pH 7.0 Ur Specific [place] 1.000 Urine Protein NEGATIVE Urine Glucose (UA) NEGATIVE Urine Ketones NEGATIVE Urine Blood NEGATIVE Urine Nitrite POSITIVE H Urine Bilirubin NEGATIVE Urine Urobilinogen NEGATIVE Ur Leukocyte Esterase TRACE H Urine Bacteria (Auto) TRACE Squamous Epi Cells Auto <1 Urine Mucus (Auto) RARE Urine Ascorbic Acid NEGATIVE Hand X-Ray 07/24/18 19:18 IMPRESSION: Stable radiographic appearance of the hand. No evidence of acute osseous abnormality. - Vital Signs Vital signs: Temp Pulse Resp BP Pulse Ox 97.8 F 65 20 187/112 H 99 07/24/18 21:54 07/24/18 21:54 07/24/18 21:54 07/24/18 21:54 07/24/18 21:54 - Laboratory Result Diagrams: 07/24/18 20:09 07/24/18 20:09 Laboratory results interpreted by me: 07/24/18 07/24/18 20:09 20:09 BUN 22 H Creatinine 1.27 H Est GFR (Non-Af Amer) 59 L Urine Nitrite POSITIVE H Ur Leukocyte Esterase TRACE H Discharge - Discharge Clinical Impression: Sarcoidosis Leg pain Qualifiers: Laterality: left Qualified Code(s): M79.605 - Pain in left leg Hand pain Qualifiers: Laterality: right Qualified Code(s): M79.641 - Pain in right hand Condition: Stable Disposition: HOME, SELF-CARE Instructions: Arthralgia ([facility]) Additional Instructions: Please return to the emergency department if you have any worsening, or concern of your symptoms. Please return to the emergency department if you develop chest pain, difficulty breathing, severe abdominal pain, or ongoing vomiting. Please follow-up with your primary care physician in 2-3 days and any other recommended physicians. If prescribed, take all medications as directed. If you have any questions or concerns do not hesitate to return the emergency department for evaluation. Prescriptions: Prednisone [Deltasone 20 mg Tablet] 3 tab PO DAILY 4 Days #12 tablet Referrals: BELLO SYLVESTER MD [ACTIVE STAFF] - Follow up in 3-5 days (rheumatology )
[2018-07-24 21:55] VITALS: BP 187/112
== END 2018-07-24 21:56 | disposition home or self-care (01) ==
LOC: ER 17:15
DX: D86.9 Sarcoidosis, unspecified (principal); M79.641 Pain in right hand; M79.605 Pain in left leg; R21 Rash and other nonspecific skin eruption; M25.50 Pain in unspecified joint; M25.439 Effusion, unspecified wrist; I10 Essential (primary) hypertension; Z88.6 Allergy status to analgesic agent; M21.941 Unspecified acquired deformity of hand, right hand; J45.909 Unspecified asthma, uncomplicated; Z87.2 Personal history of diseases of the skin and subcutaneous tissue
CPT/HCPCS: 99283; 36415; 85025; 80053; 81001; 73130; J7512

== ENCOUNTER 2018-08-16 15:56 | Emergency (ER) | payer MEDICAID ==
[2018-08-16 16:04] VITALS: BP 153/95
[2018-08-16] MEDS ORDERED: OXYCODONE-ACETAMINOPHEN 5-325 MG TABLET PO ONE (16:33)
--- NOTE | 2018-08-16 16:40 | ER Document Report ---
HPI - HPI Patient complains to provider of: Complaint of chronic right hand pain and swelling Time Seen by Provider: 08/16/18 16:13 Onset: Other - Chronic Onset/Duration: Gradual - Chronic Quality of pain: Stabbing, Throbbing Pain Level: 4 Context: 52-year-old male presents to ED for right hand pain and swelling. He states he has a history of sarcoidosis that acts like rheumatoid arthritis. He states he was diagnosed with the sarcoidosis instead of rheumatoid arthritis while he was in retirement. He states that he was going to family care and switched to [facility]. He states now [facility] has switched doctors and he will not provide him with narcotics anymore. He states that he has a referral to pain management but he cannot get into pain management until August. He states he went to his primary doctor and they told him he had to come to the emergency room to get pain management. I have informed him that the emergency room does not do chronic pain management and that I would medicate him with 1 Percocet today but that he needed to fall to a doctor that would treat his chronic pain as the emergency room was no longer able to treat chronic pain. Associated Symptoms: Other - Chronic pain Exacerbated by: Movement Relieved by: Denies Similar symptoms previously: Yes Recently seen / treated by doctor: Yes - ROS ROS below otherwise negative: Yes - CONSTITUTIONAL Constitutional: DENIES: Fever, Chills - EENT EENT: DENIES: Sore Throat, Ear Pain, Nasal Drainage-Clear, Nasal Drainage- Purulent, Congestion, Eye problems - CARDIOVASCULAR Cardiovascular: DENIES: Chest pain - RESPIRATORY Respiratory: DENIES: Trouble Breathing, Coughing - GASTROINTESTINAL Gastrointestinal: DENIES: Abdominal Pain, Nausea, Patient vomiting, Diarrhea, Constipation, Black / Bloody Stools - URINARY Urinary: DENIES: Dysuria, Urgency, Frequency - REPRODUCTIVE Reproductive: DENIES: :, Postmenopausal, Abnormal bleeding / discharge - MUSCULOSKELETAL Musculoskeletal: REPORTS: Extremity pain - Right hand pain and swelling w, Back Pain - Chronic - DERM Skin Color: Normal Skin Problems: None Past Medical History - General Information source: Patient - Social History Smoking Status: Current Every Day Smoker Cigarette use (# per day): Yes - Half pack a day Smoking Education Provided: Yes - 4 minutes Frequency of alcohol use: Social Drug Abuse: None Family History: Arthritis, CAD, CVA, DM, Hypertension, Malignancy. denies: COPD , Hyperlipidemia, Thyroid Disfunction Patient has suicidal ideation: No Patient has homicidal ideation: No - Past Medical History Cardiac Medical History: Reports: Hx Hypertension Pulmonary Medical History: Reports: Hx Asthma EENT Medical History: Reports: None Neurological Medical History: Reports: None Endocrine Medical History: Reports: None Renal/ Medical History: Reports: None Malignancy Medical History: Reports None GI Medical History: Reports: None Musculoskeletal Medical History: Reports Hx Arthritis - SARCOIDOSIS, Reports Hx Musculoskeletal Deformity, Reports Hx Musculoskeletal Trauma, Reports Other - Chronic pain, sarcoidosis Skin Medical History: Reports Hx Psoriasis Psychiatric Medical History: Reports: Other - Chronic pain syndrome Traumatic Medical History: Reports: Hx Fractures Infectious Medical History: Reports: None Past Surgical History: Reports: Hx Tonsillectomy - Immunizations Immunizations up to date: Yes Hx Diphtheria, Pertussis, Tetanus Vaccination: Yes - <5 years Hx Pneumococcal Vaccination: 05/31/14 Vertical Provider Document - CONSTITUTIONAL Agree With Documented VS: Yes Exam Limitations: No Limitations - INFECTION CONTROL TRAVEL OUTSIDE OF THE [place] IN LAST 30 DAYS: No - HEENT HEENT: Atraumatic, Normal ENT Exam, Normocephalic, PERRLA - RESPIRATORY Respiratory: Breath Sounds Normal, No Respiratory Distress - CARDIOVASCULAR Cardiovascular: Regular Rate, Regular Rhythm - MUSCULOSKELETAL/EXTREMETIES Musculoskeletal/Extremeties: MAEW, FROM, Tender - Deformities to the first and fifth MCP, swelling to the wrist, patient states he has sarcoidosis and these abnormalities are his normal. There is no tenderness to palpation to the hand. There is no redness or bruising to the hand - NEURO Level of Consciousness: Awake, Alert, Appropriate - DERM Integumentary: Warm, Dry, No Rash Course - Re-evaluation Re-evalutation: 08/16/18 16:39 Patient was seen today for pain to his hand that is chronic. He has no new injuries he has no new symptoms. He states he does not have any narcotics and cannot see pain management until August. He states he went to his primary doctor and they sent him to the emergency room for chronic pain management until he can get into the chronic pain management. I have explained to the patient that the emergency room does not do chronic pain management and he needs to follow-up with an urgent care his primary care doctor or someone other than the emergency room. - Vital Signs Vital signs: Temp Pulse Resp BP Pulse Ox 97.9 F 73 18 153/95 H 96 08/16/18 16:02 08/16/18 16:02 08/16/18 16:02 08/16/18 16:02 08/16/18 16:02 Discharge - Discharge Clinical Impression: Chronic pain of right hand Condition: Stable Disposition: HOME, SELF-CARE Instructions: Family Physicians / Practices Additional Instructions: Chronic Pain Control Stress, inactivity, and depression make pain more severe regardless of the cause of the pain. Stress and poor physical condition can cause pain such as headaches and backache. Relaxation: Rest in a quiet place with your eyes closed for 20 minutes twice daily. Concentrate on a pleasant image, or simply "feel" your breathing. Clear your mind. Stress management: Deal with your "stressors." Either take action, or eliminate the stressor from your life. Don't let things hang over you. Accept those things you can't change. Nutrition: Eat small, balanced meals -- don't skip, don't overeat. Meals should be high-carbohydrate, low-sugar, low-fat. Exercise: Exercise helps painful conditions and eases stress. Get 30 minutes of moderate exercise, five days a week. Do an activity that does not flare your pain. Precautions: Pain which continues to disrupt daily activities, or which changes in nature, requires a medical evaluation. Pain Clinic referral is available. We do not manage chronic pain in the Emergency Department. We will try to appropriately help you through an acute flare of your chronic painful condition , but for on-going chronic pain that does not improve, you will need to see your private doctor or roller painter. We do not provide repeated medication management of chronic painful conditions. If you wish, we can provide the name of local pain management physicians. Ibuprofen Ibuprofen is an excellent, safe drug for pain control. In addition, it has potent antiinflammatory effects which are beneficial, especially in the treatment of injuries, arthritis, or tendonitis. It's best to take ibuprofen with food. Persons with ulcer disease or allergy to aspirin should notify their physician of this before taking ibuprofen. Take the medication exactly as prescribed. Don't take additional doses unless instructed to do so by your doctor. If you develop wheezing, shortness of breath, hives, faintness, stomach pain, vomiting, or dark black stools, return for re-evaluation at once. You were seen today for chronic pain to your hand. You have sarcoidosis and have for a long time. You need to follow-up with chronic pain management as you have been instructed. I have given you 1 Percocet while you were in the emergency room you need to follow-up with a urgent care or your primary care doctor or chronic pain management for chronic pain management. The emergency room does not do chronic pain management FOLLOW-UP CARE: If you have been referred to a physician for follow-up care, call the physician s office for an appointment as you were instructed or within the next two days. If you experience worsening or a significant change in your symptoms, notify the physician immediately or return to the Emergency Department at any time for re-evaluation. Forms: Elevated Blood Pressure, Smoking Cessation Education Referrals: [facility] [Provider Group] - Follow up as needed
== END 2018-08-16 16:53 | disposition home or self-care (01) ==
LOC: ER 15:56
DX: G89.29 Other chronic pain (principal); M79.641 Pain in right hand; F17.210 Nicotine dependence, cigarettes, uncomplicated; I10 Essential (primary) hypertension
CPT/HCPCS: 99283; 99406

== ENCOUNTER → 2018-10-14 | Outpatient (CLI) | payer MEDICAID ==
--- NOTE | 2018-10-14 13:18 | RADIOLOGY REPORT (SQ) ---
EXAM DESCRIPTION: CHEST 2 VIEWS COMPLETED DATE/TIME: 10/14/2018 12:51 pm REASON FOR STUDY: D86.0 SARCOIDOSIS OF LUNG COMPARISON: CT chest 11/23/2014 Chest films 07/28/2016, 11/01/2017 EXAM PARAMETERS: NUMBER OF VIEWS: two views TECHNIQUE: Digital Frontal and Lateral radiographic views of the chest acquired. RADIATION DOSE: NA LIMITATIONS: none FINDINGS: LUNGS AND PLEURA: Patient has a history of sarcoidosis. There are some increased intersti tial markings in the lingula which are stable compared to studies dating back to 2014. No fluffy jessica eolar infiltrate. No pleural effusion or pneumothorax. MEDIASTINUM AND HILAR STRUCTURES: Calcified bilateral hilar lymph nodes are unchanged HEART AND VASCULAR STRUCTURES: Heart normal size. No evidence for failure. BONES: No acute findings. HARDWARE: None in the chest. OTHER: No other significant finding. IMPRESSION: Chronic appearing lung parenchymal scarring in the lingula from sarcoidosis. Calcified bilateral hilar lymph nodes, stable. No acute findings TECHNICAL DOCUMENTATION: JOB ID: [id number] [employer]- All Rights Reserved Reading location - IP/workstation name: [email or web address]
== END ==
LOC: RAD 12:37
PROVIDERS: ATTEND Internal Medicine
DX: D86.0 Sarcoidosis of lung (principal)
CPT/HCPCS: 71046

== ENCOUNTER 2018-11-20 02:58 | Emergency (ER) | payer OTHER, MEDICAID ==
--- NOTE | 2018-11-20 04:09 | ER Document Report ---
Doctor's Note Notes: 11/20/18 04:05 Patient is brought in police custody. Apparently patient was brought to custodial and the nurse noticed that his hands are swollen and therefore she said that he had to come to the ER. I reviewed the patient's records before entering the room and he has a history of rheumatoid arthritis as well as sarcoid. Patient says he was brought here even though he did not want to come here. The staff electronic warfare officer does acknowledge that the patient was brought here even though he said he did not want to come here because the custodial nurse saw his hands were swollen. Patient is awake alert. Answers all questions probably. He refuses a medical screening exam. He says he has medications at home that he takes for his hands. Says the swelling and pain in his hands is chronic and is nothing new. He denies any new injuries. He refuses any medical screening exam or any medical treatment. Patient will be discharged as he requests. Patient shows capacity to make his own decisions and I do not feel that the force of medical screening exam upon him as he is not confused or altered in any way. I informed the patient that we are happy to evaluate him at any time and he is welcome to come back to the ER anytime if he has any further concerns. Dictation of this chart was performed using voice recognition software; therefore, there may be some unintended grammatical errors. 11/20/18 04:08
== END 2018-11-20 04:17 ==
LOC: ER 02:58
DX: M79.89 Other specified soft tissue disorders (principal); M06.9 Rheumatoid arthritis, unspecified

== ENCOUNTER 2019-10-24 10:59 | Emergency (ER) | payer MEDICAID ==
[2019-10-24 11:24] VITALS: BP 165/98
--- NOTE | 2019-10-24 11:29 | ER Document Report ---
ED Medical Screen (RME) - General Chief Complaint: Chest Pain Stated Complaint: CHEST PAIN Time Seen by Provider: 10/24/19 11:23 TRAVEL OUTSIDE OF THE [place] IN LAST 30 DAYS: No - HPI Notes: 10/24/19 11:28 Patient is a 53-year-old male with history of sarcoidosis and asthma who presents complaint of right-sided chest pain that has been intermittent since yesterday, but consistent for the past hour. Pain does not radiate. He is not aware of anything that worsens his symptoms. No history of DVT, PE, CAD, CVA, DM. No fever, shortness of breath, cough, vomiting/diarrhea. I have treated and performed a rapid initial assessment of this patient. A comprehensive ED assessment and evaluation of the patient, analysis of test results and completion of medical decision making process will be conducted by additional ED providers. PHYSICAL EXAMINATION: GENERAL: Well-appearing, well-nourished and in no acute distress. A&Ox4. Answers questions appropriately. Heart: RRR Lungs: CTAB Extremities: No edema. No calf tenderness. - Related Data Allergies/Adverse Reactions: aspirin [Aspirin] Allergy (Severe, Verified 11/17/17 10:01) RASH/itching Past Medical History - Past Medical History Cardiac Medical History: Reports: Hx Hypertension Denies: Hx Coronary Artery Disease, Hx Heart Attack Pulmonary Medical History: Reports: Hx Asthma Denies: Hx Bronchitis, Hx COPD, Hx Pneumonia Neurological Medical History: Denies: Hx Cerebrovascular Accident, Hx Seizures Renal/ Medical History: Denies: Hx Peritoneal Dialysis Musculoskeltal Medical History: Reports Hx Arthritis - SARCOIDOSIS, Reports Hx Musculoskeletal Deformity, Reports Hx Musculoskeletal Trauma Skin Medical History: Reports Hx Psoriasis Traumatic Medical History: Reports: Hx Fractures Past Surgical History: Reports: Hx Tonsillectomy - Immunizations Immunizations up to date: Yes Hx Diphtheria, Pertussis, Tetanus Vaccination: Yes - <5 years Physical Exam - Vital signs Vitals: Temp Pulse Resp BP Pulse Ox 98.0 F 62 18 165/98 H 96 10/24/19 11:22 10/24/19 11:22 10/24/19 11:22 10/24/19 11:22 10/24/19 11:22 Course - Vital Signs Vital signs: Temp Pulse Resp BP Pulse Ox 98.0 F 62 18 165/98 H 96 10/24/19 11:22 10/24/19 11:22 10/24/19 11:22 10/24/19 11:22 10/24/19 11:22
[2019-10-24 11:51] LABS: ABSOLUTE EOSINOPHILS # (AUTO) 0.1 10^3/uL (0.0-0.6); ABSOLUTE LYMPHOCYTES (AUTO) 0.9 10^3/uL (0.5-4.7); ABSOLUTE MONOCYTES (AUTO) 0.4 10^3/uL (0.1-1.4); ABSOLUTE NEUT (AUTO) 2.7 10^3/uL (1.7-8.2); BASOPHILS % (AUTO) 0.5 % (0-2); EOSINOPHILS % (AUTO) 2.4 % (0-6); HEMATOCRIT 38.8 % (37.9-51.0); HEMOGLOBIN 13.8 g/dL (13.5-17.0); LYMPHOCYTES % (AUTO) 21.7 % (13-45); MEAN CORPUSCULAR HEMOGLOBIN 31.7 pg (27.0-33.4); MEAN CORPUSCULAR HGB CONC 35.5 g/dL (32.0-36.0); MEAN CORPUSCULAR VOLUME 89 fl (80-97); MONOCYTES % (AUTO) 8.7 % (3-13); PLATELET COUNT 152 10^3/uL (150-450); RED BLOOD COUNT 4.34 10^6/uL (4.35-5.55); RED CELL DISTRIBUTION WIDTH 13.5 % (11.5-14.0); SEGMENTED NEUTROPHILS % (AUTO) 66.7 % (42-78); TOTAL CELLS COUNTED % (AUTO) 100 %; WHITE BLOOD COUNT 4.1 10^3/uL (4.0-10.5)
[2019-10-24] MEDS ORDERED: POTASSIUM CHLORIDE 10 MEQ TABLET.ER PO ONE (12:06)
[2019-10-24] MEDS ORDERED: POTASSI CL 20 MEQ/50 ML RIDER 20 MEQ/50 ML RTUPB IV ONE (12:07)
[2019-10-24 12:08] LABS: ALBUMIN 4.1 g/dL (3.5-5.0); ALKALINE PHOSPHATASE 60 U/L (38-126); ANION GAP 9 (5-19); ASPARTATE AMINO TRANSFERASE 40 U/L (17-59); BILIRUBIN,DIRECT 0.3 mg/dL (0.0-0.4); BILIRUBIN,TOTAL 0.4 mg/dL (0.2-1.3); BLOOD UREA NITROGEN 19 mg/dL (7-20); CALCIUM 9.2 mg/dL (8.4-10.2); CARBON DIOXIDE 29 mmol/L (22-30); CHLORIDE 104 mmol/L (98-107); GLUCOSE 111 mg/dL (75-110); POTASSIUM 3.3 mmol/L (3.6-5.0); TOTAL PROTEIN 7.5 g/dL (6.3-8.2)
--- NOTE | 2019-10-24 12:44 | RADIOLOGY REPORT (SQ) ---
EXAM DESCRIPTION: CHEST 2 VIEWS COMPLETED DATE/TIME: 10/24/2019 12:21 pm REASON FOR STUDY: CP COMPARISON: PA and lateral views of the chest from 10/14/2018 EXAM PARAMETERS: NUMBER OF VIEWS: Two views. TECHNIQUE: PA and lateral views of the chest were obtained.. RADIATION DOSE: NA LIMITATIONS: none FINDINGS: LUNGS AND PLEURA: Chronic interstitial opacities in the lingula. There is no acute consol idation, sizeable pleural effusion or pneumothorax. MEDIASTINUM AND HILAR STRUCTURES: Stable mediastinal and hilar contours. HEART AND VASCULAR STRUCTURES: The cardiac silhouette and pulmonary vasculature are within normal boyce its. BONES: No acute findings. HARDWARE: None in the chest. OTHER: No other finding. IMPRESSION: No acute cardiopulmonary process. TECHNICAL DOCUMENTATION: JOB ID: [id number] 2010 [employer]- All Rights Reserved Reading location - IP/workstation name: [email or web address]
--- NOTE | 2019-10-24 18:13 | EKG REPORT ---
SEVERITY:- ABNORMAL ECG - SINUS RHYTHM [Remains] VENTRICULAR PREMATURE COMPLEX [Now Present] LAD, CONSIDER LEFT ANTERIOR FASCICULAR BLOCK [Remains] LEFT VENTRICULAR HYPERTROPHY [Now Present] BORDERLINE T ABNORMALITIES, INFERIOR LEADS [Now Present] SIGNIFICANT ECG CONTOUR CHANGES : Confirmed by: Jasmin Anderson MD 24-Oct-2019 18:12:31
== END 2019-10-24 14:00 | disposition left against medical advice (07) ==
LOC: ER 10:59
DX: Z53.21 Procedure and treatment not carried out due to patient leaving prior to being seen by health care provider (principal)
CPT/HCPCS: 36415; 71046; 80053; 84484; 85025; 93005; 93010; 99281

== ENCOUNTER 2019-11-15 00:07 | Emergency (ER) | payer MEDICAID ==
[2019-11-15] MEDS ORDERED: CLOPIDOGREL BISULFATE 75 MG TABLET PO ONE (00:33)
--- NOTE | 2019-11-15 00:35 | ER Document Report ---
ED Medical Screen (RME) - General TRAVEL OUTSIDE OF THE [place] IN LAST 30 DAYS: No - Related Data Home Medications: OXYCONDIN. AMBIEN <DIAMOND DEWITT - Last Filed: 11/15/19 00:33> - General Mode of Arrival: Ambulatory Information source: Patient <MIREYA SALDANA - Last Filed: 11/15/19 16:06> - General Chief Complaint: Chest Pain Stated Complaint: CHEST PAIN Primary Care Provider: RONN CARRANZA MD [Primary Care Provider] - Follow up as needed Notes: Patient is a 54-year-old -Iranian male with a past medical history of sarcoidosis and prostate cancer who just underwent prostatectomy who presents to the emergency department the chief complaint of chest pain that began about 3 days ago. Patient reports he is been very stressed out lately. States he has had a lot going on. He states this has caused him to start to abuse prescription Percocet as well as illicit substances such as cocaine, marijuana and alcohol. States he thinks the cocaine is causing his chest pain. He states he been using a lot of it. He states his been having suicidal thoughts in combination. States he can no longer take the amount of stress that he is under and is having thoughts of killing himself which is why has been using so many substances. He denies any shortness of breath. He reports that his blood pressure has been elevated. He denies any homicidal ideations or hallucinations. I have treated and performed a rapid initial assessment of this patient. A comprehensive ED assessment and evaluation of the patient, analysis of test results and completion of medical decision making process will be conducted by additional ED providers. PHYSICAL EXAMINATION: GENERAL: Well-appearing, well-nourished and in no acute distress. A&Ox4. Answe rs questions appropriately. (DIAMOND DEWITT) - Related Data Allergies/Adverse Reactions: aspirin [Aspirin] Allergy (Severe, Verified 11/15/19 00:29) RASH/itching Past Medical History - Social History Frequency of alcohol use: Heavy Drug Abuse: Cocaine, Heroin, Marijuana, Prescription drugs - Past Medical History Cardiac Medical History: Reports: Hx Hypertension Denies: Hx Coronary Artery Disease, Hx Heart Attack Pulmonary Medical History: Reports: Hx Asthma Denies: Hx Bronchitis, Hx COPD, Hx Pneumonia Neurological Medical History: Denies: Hx Cerebrovascular Accident, Hx Seizures Renal/ Medical History: Denies: Hx Peritoneal Dialysis Musculoskeltal Medical History: Reports Hx Arthritis - SARCOIDOSIS, Reports Hx Musculoskeletal Deformity, Reports Hx Musculoskeletal Trauma Skin Medical History: Reports Hx Psoriasis Traumatic Medical History: Reports: Hx Fractures Past Surgical History: Reports: Hx Tonsillectomy - Immunizations Immunizations up to date: Yes Hx Diphtheria, Pertussis, Tetanus Vaccination: Yes - <5 years <DIAMOND DEWITT - Last Filed: 11/15/19 00:33> - General Information source: Patient - Social History Lives with: Alone Family history: Reviewed & Not Pertinent <MIREYA SALDANA - Last Filed: 11/15/19 16:06> Review of Systems - Review of Systems Constitutional: No symptoms reported EENT: No symptoms reported Cardiovascular: Chest pain Respiratory: No symptoms reported Gastrointestinal: No symptoms reported Genitourinary: No symptoms reported Male Genitourinary: No symptoms reported Musculoskeletal: No symptoms reported Skin: No symptoms reported Hematologic/Lymphatic: No symptoms reported Neurological/Psychological: Depression, Suicidal ideation, Other - Drug Use -: Yes All other systems reviewed and negative <MIREYA SALDANA - Last Filed: 11/15/19 16:06> Physical Exam <MIREYA SALDANA - Last Filed: 11/15/19 16:06> - Vital signs Vitals: Temp Pulse Resp BP Pulse Ox 97.8 F 77 20 143/102 H 97 11/15/19 00:13 11/15/19 00:13 11/15/19 00:13 11/15/19 00:13 11/15/19 00:13 - Notes Notes: GENERAL: Well-appearing, well-nourished and in no acute distress. HEAD: Atraumatic, normocephalic. EYES: Pupils equal round and reactive to light, extraocular movements intact, sclera anicteric, conjunctiva are normal. ENT: Nares patent, oropharynx clear without exudates. Moist mucous membranes. NECK: Normal range of motion, supple without lymphadenopathy or JVD. LUNGS: Breath sounds clear to auscultation bilaterally and equal. No wheezes rales or rhonchi. HEART: Regular rate and rhythm without murmurs, rubs or gallops. ABDOMEN: Soft, nontender, normoactive bowel sounds. No guarding, no rebound. No masses appreciated. EXTREMITIES: Normal range of motion, no pitting or edema. No clubbing or cyanosis. NEUROLOGICAL: Cranial nerves II through XII grossly intact. Normal speech, normal gait. PSYCH: Normal mood, flat affect, endorsing drug use and SI. SKIN: Warm, Dry, normal turgor, no rashes or lesions noted. (MIREYA SALDANA) Course - Laboratory Result Diagrams: 11/15/19 00:40 11/15/19 00:40 - Diagnostic Test Radiology reviewed: Image reviewed, Reports reviewed <MIREYA SALDANA - Last Filed: 11/15/19 16:06> - Re-evaluation Re-evalutation: 11/15/19 16:04 The patient was medically cleared and signed out to the oncoming team for psych evaluation (SHANAMIREYA) - Vital Signs Vital signs: Temp Pulse Resp BP Pulse Ox 97.2 F 64 18 172/100 H 100 11/15/19 10:58 11/15/19 10:58 11/15/19 10:58 11/15/19 11:20 11/15/19 10:58 - Laboratory Laboratory results interpreted by me: 11/15/19 11/15/19 00:40 00:40 WBC 3.4 L Creatinine 1.32 H Est GFR (MDRD) Non-Af 56 L Salicylates < 1.0 L Acetaminophen < 10 L Doctor's Discharge <DIAMOND DEWITT - Last Filed: 11/15/19 00:33> <MIREYA SALDANA - Last Filed: 11/15/19 16:06> - Discharge Clinical Impression: Suicidal ideation, Chest pain Condition: Stable Disposition: HOME, SELF-CARE Instructions: Chest Wall Pain ([facility]), Drug Effects ([facility]), Suicidal Ideation ([facility]) Additional Instructions: You have been evaluated by both medical and behavioral health teams for substan ce abuse and suicidal ideation and have been deemed appropriate for discharge. While in the emergency department you received the following services: Medical screening and assessment, nursing services, dietary services, pharmacological services, one-on-one counseling and/or psychotherapy, environmental services, and continuous observation by a patient environmental health and safety intern. You have been provided with a mental health resource list. You have also been provided with a substance abuse treatment resource list. You are highly encouraged to follow up with a mental health provider for mental health services and substance abuse treatment. The contact information for [facility] has been provided. A voluntary bed has been secured at [facility] and will be held until 2pm. If you need more time or change your mind about receiving this voluntary assistance please contact them at [facility] [phone] COCAINE ABUSE: Cocaine causes many dangerous medical problems. Problems can occur even with "usual" amounts. Cocaine affects judgement, creating a sense of invulnerability. Cocaine users often make bad decisions that seem "great" at the time. Most cocaine users eventually will be hurt by bad job performance, damaged personal relations, crime, and unsafe sexual practices. Toxic effects of cocaine can include seizures, hallucinations, delusions, high blood pressure, heart damage, or sudden . There's always the risk of a "bad batch." But heart attacks, brain hemorrhages, or cardiac arrest can occur unpredictably even with "normal" use. Injection of cocaine is risky for abscesses, endocarditis (heart infection), pneumonia, and AIDS. Withdrawal from cocaine often causes anxiety and drug cravings. Some users become paranoid and psychotic. Many treatment programs are available, but you must make the decision to quit. Medication can be prescribed to control the symptoms of cocaine toxicity (beta blockers or benzodiazepines). Withdrawal symptoms may require tranquilizers. DEPRESSION: Your evaluation reveals that you have mental depression. While symptoms may be vague, they often include disturbance of sleep, fatigue, loss of appetite, and general loss of interest in life. While depression may be a side effect of drugs, or a reaction to a major change in your life, many cases have no known cause. If depression is acute, and related to a major loss in your life, you can expect it to clear completely with time. If you have been depressed a long time, are prone to repeated bouts of depression or low mood, or have been thinking of suicide, get help. Depression can be treated with anti-depressant medication and counselling. Long-term depression will often take a few weeks to clear, even with appropriate medication. Follow-up care is important. SUICIDAL IDEATION: Suicidal ideation is a common medical term for thoughts about suicide, which may be as detailed as a formulated plan, without the suicidal act itself. Although most people who undergo suicidal ideation do not commit suicide, some go on to make suicide attempts. The range of suicidal ideation varies greatly from fleeting to detailed planning, role playing, and unsuccessful attempts. While thoughts about suicide are common, most people do not carry out serious actions to commit suicide. Based upon your evaluation and discussion with you, we do not believe you are currently at risk to act upon your thoughts of suicide. You have agreed to return to the Emergency Department, at any time, if you feel inclined to act upon your suicidal thoughts. FOLLOW-UP CARE: If you have been referred to a physician for follow-up care, call the physicians office for an appointment as you were instructed or within the next two days. If you experience worsening or a significant change in your symptoms, notify the physician immediately or return to the Emergency Department at any time for re-evaluation. Referrals: RONN CARRANZA MD [Primary Care Provider] - Follow up as needed
[2019-11-15 00:53] LABS: ABSOLUTE MONOCYTES (AUTO) 0.3 10^3/uL (0.1-1.4); BASOPHILS % (AUTO) 0.6 % (0-2); EOSINOPHILS % (AUTO) 1.1 % (0-6); TOTAL CELLS COUNTED % (AUTO) 100 %; WHITE BLOOD COUNT 3.4 10^3/uL (4.0-10.5)
[2019-11-15 00:58] LABS: INTERNATIONAL RATION (INR) 0.99; PARTIAL THROMBOPLASTIN TIME 26.2 SEC (23.5-35.8); PROTHROMBIN TIME 13.1 SEC (11.4-15.4)
[2019-11-15 00:59] LABS: ABSOLUTE NEUT (AUTO) 1.9 10^3/uL (1.7-8.2); HEMATOCRIT 40.9 % (37.9-51.0); HEMOGLOBIN 14.3 g/dL (13.5-17.0); LYMPHOCYTES % (AUTO) 30.5 % (13-45); MEAN CORPUSCULAR HEMOGLOBIN 31.6 pg (27.0-33.4); MEAN CORPUSCULAR HGB CONC 35.1 g/dL (32.0-36.0); MEAN CORPUSCULAR VOLUME 90 fl (80-97); MONOCYTES % (AUTO) 9.7 % (3-13); PLATELET COUNT 155 10^3/uL (150-450); RED BLOOD COUNT 4.54 10^6/uL (4.35-5.55); RED CELL DISTRIBUTION WIDTH 13.9 % (11.5-14.0); SEGMENTED NEUTROPHILS % (AUTO) 58.1 % (42-78)
[2019-11-15 01:05] LABS: ALBUMIN 4.2 g/dL (3.5-5.0); ALKALINE PHOSPHATASE 71 U/L (38-126); ANION GAP 7 (5-19); ASPARTATE AMINO TRANSFERASE 33 U/L (17-59); BILIRUBIN,DIRECT 0.3 mg/dL (0.0-0.4); BILIRUBIN,TOTAL 0.5 mg/dL (0.2-1.3); BLOOD UREA NITROGEN 19 mg/dL (7-20); CALCIUM 9.2 mg/dL (8.4-10.2); CARBON DIOXIDE 30 mmol/L (22-30); CHLORIDE 107 mmol/L (98-107); GLUCOSE 93 mg/dL (75-110); POTASSIUM 3.7 mmol/L (3.6-5.0); TOTAL PROTEIN 7.9 g/dL (6.3-8.2)
[2019-11-15 01:06] LABS: ACETAMINOPHEN < 10 ug/mL (10-30); ALCOHOL < 10 mg/dL (NONE DETECTED); SALICYLATE < 1.0 mg/dL (2.0-20.0)
--- NOTE | 2019-11-15 01:14 | RADIOLOGY REPORT (SQ) ---
EXAM DESCRIPTION: XR CHEST 2 VIEWS COMPLETED DATE/TME: 11/15/2019 00:31 CLINICAL HISTORY: 54 years, Male, cp COMPARISON: 10/24/2019 chest NUMBER OF VIEWS: 2 TECHNIQUE: 2 view chest LIMITATIONS: None. FINDINGS: The heart size is normal. Coarse, chronic appearing interstitial changes in the left perihilar region/lingula and minimally in the right perihilar region. Findings are unchanged dating back to a 10/14/2018 chest x-ray. No pneumothorax. Lungs are otherwise clear IMPRESSION: Chronic appearing perihilar and lingular interstitial changes. No new or acute findings copyright 2010 [employer]- All Rights Reserved
--- NOTE | 2019-11-15 02:32 | ER Document Report ---
ED General - General Chief Complaint: Suicidal Ideation Stated Complaint: CHEST PAIN Time Seen by Provider: 11/15/19 01:55 Primary Care Provider: RONN CARRANZA MD [Primary Care Provider] - Follow up as needed Mode of Arrival: Ambulatory Information source: Patient TRAVEL OUTSIDE OF THE [place] IN LAST 30 DAYS: No - HPI Onset: Other - over the last few days Onset/Duration: Gradual Quality of pain: Pressure Severity: Moderate Pain Level: 2 Associated symptoms: Chest pain, Other - Depression, SI Similar symptoms previously: Yes - with anxiety and depression Recently seen / treated by doctor: No Notes: 54 year old male with a history of HTN, Asthma, Arthritis, Psoriasis, Depression, and Polysubstance Abuse here for chest pain over the last several days in the setting of multi drug use as well as for thoughts of wanting to kill himself. The patient has been using drugs to coup with his depression recently. The patient says just had a prostate surgery and a complication from the surgery and that is also adding to his depression. The patient has never had a cardiac stress test or cardiac cath. The patient denies nausea, vomiting, sweating, radiation of chest pain. The chests pains seem to come and go and they seem to happen with drug use the most. - Related Data Allergies/Adverse Reactions: aspirin [Aspirin] Allergy (Severe, Verified 11/15/19 00:29) RASH/itching Home Medications: OXYCONDIN. AMBIEN Past Medical History - General Information source: Patient - Social History Smoking Status: Current Every Day Smoker Frequency of alcohol use: Heavy Drug Abuse: Cocaine, Heroin, Marijuana, Prescription drugs Family History: Arthritis, CAD, CVA, DM, Hypertension, Malignancy. denies: COPD, Hyperlipidemia, Thyroid Disfunction Patient has suicidal ideation: No Patient has homicidal ideation: No - Past Medical History Cardiac Medical History: Reports: Hx Hypertension Denies: Hx Coronary Artery Disease, Hx Heart Attack Pulmonary Medical History: Reports: Hx Asthma Denies: Hx Bronchitis, Hx COPD, Hx Pneumonia Neurological Medical History: Denies: Hx Cerebrovascular Accident, Hx Seizures Renal/ Medical History: Denies: Hx Peritoneal Dialysis Musculoskeletal Medical History: Reports Hx Arthritis - SARCOIDOSIS, Reports Hx Musculoskeletal Deformity, Reports Hx Musculoskeletal Trauma Skin Medical History: Reports Hx Psoriasis Traumatic Medical History: Reports: Hx Fractures Past Surgical History: Reports: Hx Tonsillectomy - Immunizations Immunizations up to date: Yes Hx Diphtheria, Pertussis, Tetanus Vaccination: Yes - <5 years Hx Pneumococcal Vaccination: 05/31/14 Review of Systems - Review of Systems Constitutional: No symptoms reported EENT: No symptoms reported Cardiovascular: Chest pain Respiratory: No symptoms reported Gastrointestinal: No symptoms reported Genitourinary: No symptoms reported Male Genitourinary: No symptoms reported Musculoskeletal: No symptoms reported Skin: No symptoms reported Hematologic/Lymphatic: No symptoms reported Neurological/Psychological: Depression, Suicidal ideation -: Yes All other systems reviewed and negative Physical Exam - Vital signs Vitals: Temp Pulse Resp BP Pulse Ox 97.8 F 77 20 143/102 H 97 11/15/19 00:13 11/15/19 00:13 11/15/19 00:13 11/15/19 00:13 11/15/19 00:13 - Notes Notes: GENERAL: Well-appearing, well-nourished and in no acute distress. HEAD: Atraumatic, normocephalic. EYES: Pupils equal round and reactive to light, extraocular movements intact, sclera anicteric, conjunctiva are normal. ENT: Nares patent, oropharynx clear without exudates. Moist mucous membranes. NECK: Normal range of motion, supple without lymphadenopathy or JVD. LUNGS: Breath sounds clear to auscultation bilaterally and equal. No wheezes rales or rhonchi. HEART: Regular rate and rhythm without murmurs, rubs or gallops. ABDOMEN: Soft, nontender, normoactive bowel sounds. No guarding, no rebound. No masses appreciated. EXTREMITIES: Normal range of motion, no pitting or edema. No clubbing or cyanosis. NEUROLOGICAL: Cranial nerves II through XII grossly intact. Normal speech, normal gait. PSYCH: Normal mood, flat affect, endorsing SI. SKIN: Warm, Dry, normal turgor, no rashes or lesions noted. Course - Re-evaluation Re-evalutation: 11/15/19 02:36 The patient is in the ER mostly for psych reasons (he has had thoughts of SI). However, the patient has also been having chest pains in the setting of using cocaine, percocet, and THC. The patient is relatively low risk for CAD (he is a smoker and has HTN but he has no strong family history of CAD, no DM, and no HLD). Patient's EKG is unremarkable and unchanged from priors. Plan will be to obtain 2 negative Trops for medical clearance and then have the patient evaluated by psych. - Vital Signs Vital signs: Temp Pulse Resp BP Pulse Ox 97.8 F 77 20 128/80 H 95 11/15/19 00:13 11/15/19 00:13 11/15/19 04:01 11/15/19 04:00 11/15/19 04:01 - Laboratory Result Diagrams: 11/15/19 00:40 11/15/19 00:40 Laboratory results interpreted by me: 11/15/19 11/15/19 00:40 00:40 WBC 3.4 L Creatinine 1.32 H Est GFR (MDRD) Non-Af 56 L Salicylates < 1.0 L Acetaminophen < 10 L - Diagnostic Test Radiology reviewed: Image reviewed, Reports reviewed - EKG Interpretation by Me EKG shows normal: Sinus rhythm, Intervals, QRS Complexes Rate: Normal Stanton/QRS: Left axis deviation, LAHB/LAFB When compared to previous EKG there are: No significant change Additional EKG results interpreted by me: 11/15/19 02:31 T wave inversions aVR, V1, III Discharge - Discharge Clinical Impression: Suicidal ideation Chest pain Qualifiers: Chest pain type: unspecified Qualified Code(s): R07.9 - Chest pain, unspecified Condition: Stable Disposition: PSYCH HOSP/UNIT Instructions: Chest Wall Pain ([facility]), Drug Effects ([facility]), Suicidal Ideation ([facility]) Referrals: RONN CARRANZA MD [Primary Care Provider] - Follow up as needed
[2019-11-15] MEDS ORDERED: CLOPIDOGREL BISULFATE 75 MG TABLET ONE (02:37)
[2019-11-15 03:02] LABS: URINE AMPHETAMINES SCREEN NEGATIVE; URINE BARBITURATES SCREEN NEGATIVE; URINE BENZODIAZEPINES SCREEN NEGATIVE; URINE METHADONE SCREEN NEGATIVE; URINE PHENCYCLIDINE SCREEN NEGATIVE
[2019-11-15 03:09] LABS: URINE COCAINE SCREEN UNCONFIRMED POSITIVE; URINE MARIJUANA (THC) SCREEN UNCONFIRMED POSITIVE
--- NOTE | 2019-11-15 10:16 | ER Document Report ---
Doctor's Note Notes: 11/15/19 10:15 Patient's vital signs and previous labs, diagnostic images reviewed. Reviewed mental health notes, nurse's notes and previous providers notes. VSS. Pt is in no distress at this time. Denies any SI or HI. General: A&Ox3. Answers questions appropriately. Heart: RRR Lungs: CTAB Psych: Flat affect A/P: Continue monitoring and rec's per MH. Normal diet Awaiting for mental health to determine plan of care for patient
[2019-11-15] MEDS ORDERED: AMLODIPINE BESYLATE 10 MG TABLET PO ONE (11:07)
[2019-11-15 11:21] VITALS: BP 172/100
--- NOTE | 2019-11-15 11:50 | PSYCHOLOGICAL NOTE ---
<EVE ALVARADO - Last Filed: 11/15/19 11:39> Psych Note - Psych Note Date seen by psych provider: 11/15/19 Time seen by psych provider: 08:15 Psych Note: Reason For Consult:Substance abuse and suicidal ideation Consent Permissions:none provided Patient reports his friend drove him to [facility] ED last night because he was having chest pains. He states he has been having a lot of problems lately that have been racing through his mind which resulted in him abusing his medications. He states he takes more of his medication and he should in addition to cocaine and alcohol. He reports he drinks daily. Patient identifies substance abuse that h as been ongoing for many years stating "the more I do the more I want it.... You do it so long you can stop... You know you should stop but can't." Patient identifies that his substance abuse has led him to depression and anxiety. He also identifies losing 6 family members with involved 6 months that also contributed to his depression. He identifies having passive suicidal ideation i.e. no plans means or intent when under the influence with passing thoughts of "you should just go ahead and ended." Patient states he does not have a plan and he does not want to he wants help. Patient identifies knowing that if he is unable to control his substance abuse he will end up dying from it. He discloses diagnosis of schizophrenia with a one-time prescription of Zyprexa to assist; however, he had to stop taking it because he had an allergic reaction with swelling of the throat. He denies any other times with medications. He reports that he sees and hears things that no one else can. He identifies visual hallucinations as "shadows" and auditory hallucinations that are "fuzzy... like hearing the seeing a seashell.... Sounds like that." He reports numerous inpatient psychiatric treatments all over the state. He discloses he currently does have a place to live. Confirms he would like assistance with a detox bed that is voluntary. Patient is alert and orientated to person, place, time and circumstance. Mood is overall euthymic with congruent affect. Patient reports passive suicidal ideation when under the influence i.e. no plans means or intent. He denies homicidal ideation. Delusions are absent and behaviors congruent with an intact reality based presentation ie organized and linear thought process. Patient discloses experiencing both auditory and visual hallucinations however patient's descriptions of visual sensation symptoms are not congruent with known manifestations. Patient is most likely experiencing the symptoms in connection to his substance abuse. Eye contact is well-maintained. Conversational speech is within normal rate, tone and prosody. Intellectual abilities appear to be within the average range. Attention and concentration are good. Insight, judgment, impulse control are fair. Clinician was able to contact [facility] who confirm they have a voluntary bed available for the patient. They will hold the bed until 2 PM and request the patient to contact them if he will be late or changes his mind. Impression\\plan: Patient is cleared from acute psychiatric services. At this time patient does not meet IVC criteria per [place] GS 120 2C. Patient reports passive suicidal ideation i.e. no plans means or intent. Patient has a long reported history of inpatient psychiatric treatment however does not appear to follow-up with outpatient mental health services or have any psychiatric medications. Patient states he is only been on psychiatric medications once which resulted in an allergic reaction. At this time it appears patient's symptoms are more congruent with long-term substance abuse. While patient was using cocaine and does not require detox, [facility] confirm they would have a voluntary bed available for the patient to assist with both substance abuse and his passive suicidal ideation if he so chooses. Patient has received this information and confirms he will contact [facility] if he changes his mind or would be late. Patient is encouraged to follow-up with outpatient mental health services for both substance abuse and mental health whether he goes to [facility] or not. Dr. Washington was consulted to care management of this patient; attending physicians in agreement with recommendations and disposition. <ADALBERTO WASHINGTON - Last Filed: 11/15/19 11:58> Psych Note - Psych Note Psych Note: ADDENDUM to IMPRESSION / PLAN: Note should read....IVC criteria per [place] GS 122C...
--- NOTE | 2019-11-15 14:36 | EKG REPORT ---
SEVERITY:- ABNORMAL ECG - SINUS RHYTHM LEFT ANTERIOR FASCICULAR BLOCK CONSIDER LEFT VENTRICULAR HYPERTROPHY : Confirmed by: Jasmin Anderson MD 15-Nov-2019 14:34:37
== END 2019-11-15 11:22 | disposition home or self-care (01) ==
LOC: ER 00:07
DX: R45.851 Suicidal ideations (principal); R07.9 Chest pain, unspecified; F32.9 Major depressive disorder, single episode, unspecified; F17.200 Nicotine dependence, unspecified, uncomplicated; I10 Essential (primary) hypertension; Z85.46 Personal history of malignant neoplasm of prostate; Z88.6 Allergy status to analgesic agent
CPT/HCPCS: 93005; 99285; 36415; 80307 ×4; 85025; 85610; 85730; 80053; 84484; 71046; 93010; J3490

== ENCOUNTER 2020-01-16 11:03 | Emergency (ER) | payer MEDICAID ==
[2020-01-16] MEDS ORDERED: ONDANSETRON HCL INJ/PF 4 MG/2 ML SDV IV ONE (11:16)
--- NOTE | 2020-01-16 11:17 | ER Document Report ---
ED Medical Screen (RME) - General Chief Complaint: Dizziness Stated Complaint: DIZZINESS Time Seen by Provider: 01/16/20 11:07 Primary Care Provider: RONN CARRANZA MD [Primary Care Provider] - Follow up as needed Mode of Arrival: Ambulatory Information source: Patient Notes: HPI; 54-year-old male presents to the emergency room complaining of dizziness with abdominal pain and nausea that started yesterday. States the dizziness is worse when he moves, denies any fevers, no urinary symptoms. States he had one episode of loose stools today. PE: Alert and oriented x3, lungs clear to auscultation without rales rhonchi wheezes, heart: Regular rate and rhythm without murmurs rubs or gallops. Abdomen soft nondistended, diffuse tenderness, positive bowel sounds x4. No guarding, no rebound. I have greeted and performed a rapid initial assessment of this patient. A comprehensive ED assessment and evaluation of the patient, analysis of test results and completion of the medical decision making process will be conducted by additional ED providers. I have specifically instructed the patient or family members with the patient to immediately return to any nursing staff should anything change in the patient's condition or with their chief complaint. TRAVEL OUTSIDE OF THE [place] IN LAST 30 DAYS: No - Related Data Allergies/Adverse Reactions: aspirin [Aspirin] Allergy (Severe, Verified 11/15/19 00:29) RASH/itching Past Medical History - Social History Family history: Reviewed & Not Pertinent - Past Medical History Cardiac Medical History: Reports: Hx Hypertension Denies: Hx Coronary Artery Disease, Hx Heart Attack Pulmonary Medical History: Reports: Hx Asthma Denies: Hx Bronchitis, Hx COPD, Hx Pneumonia Neurological Medical History: Denies: Hx Cerebrovascular Accident, Hx Seizures Renal/ Medical History: Denies: Hx Peritoneal Dialysis Musculoskeltal Medical History: Reports Hx Arthritis - SARCOIDOSIS, Reports Hx Musculoskeletal Deformity, Reports Hx Musculoskeletal Trauma Skin Medical History: Reports Hx Psoriasis Traumatic Medical History: Reports: Hx Fractures Past Surgical History: Reports: Hx Tonsillectomy - Immunizations Immunizations up to date: Yes Hx Diphtheria, Pertussis, Tetanus Vaccination: Yes - <5 years Physical Exam - Vital signs Vitals: Temp Pulse Resp BP Pulse Ox 98.4 F 67 16 151/97 H 99 01/16/20 11:07 01/16/20 11:07 01/16/20 11:07 01/16/20 11:07 01/16/20 11:07 Course - Vital Signs Vital signs: Temp Pulse Resp BP Pulse Ox 98.4 F 67 16 151/97 H 99 01/16/20 11:07 01/16/20 11:07 01/16/20 11:07 01/16/20 11:07 01/16/20 11:07 Doctor's Discharge - Discharge Referrals: RONN CARRANZA MD [Primary Care Provider] - Follow up as needed
[2020-01-16 11:47] LABS: ABSOLUTE EOSINOPHILS # (AUTO) 0.1 10^3/uL (0.0-0.6); ABSOLUTE LYMPHOCYTES (AUTO) 0.9 10^3/uL (0.5-4.7); ABSOLUTE MONOCYTES (AUTO) 0.4 10^3/uL (0.1-1.4); EOSINOPHILS % (AUTO) 3.2 % (0-6); HEMATOCRIT 38.9 % (37.9-51.0); HEMOGLOBIN 13.7 g/dL (13.5-17.0); LYMPHOCYTES % (AUTO) 26.3 % (13-45); MEAN CORPUSCULAR HEMOGLOBIN 31.7 pg (27.0-33.4); MEAN CORPUSCULAR HGB CONC 35.2 g/dL (32.0-36.0); MEAN CORPUSCULAR VOLUME 90 fl (80-97); MONOCYTES % (AUTO) 12.3 % (3-13); PLATELET COUNT 167 10^3/uL (150-450); RED BLOOD COUNT 4.33 10^6/uL (4.35-5.55); RED CELL DISTRIBUTION WIDTH 13.9 % (11.5-14.0); SEGMENTED NEUTROPHILS % (AUTO) 57.2 % (42-78); TOTAL CELLS COUNTED % (AUTO) 100 %; WHITE BLOOD COUNT 3.5 10^3/uL (4.0-10.5)
[2020-01-16 12:12] LABS: ALBUMIN 4.1 g/dL (3.5-5.0); ALKALINE PHOSPHATASE 68 U/L (38-126); ANION GAP 6 (5-19); ASPARTATE AMINO TRANSFERASE 27 U/L (17-59); BILIRUBIN,TOTAL 0.5 mg/dL (0.2-1.3); BLOOD UREA NITROGEN 20 mg/dL (7-20); CARBON DIOXIDE 28 mmol/L (22-30); CHLORIDE 105 mmol/L (98-107); GLUCOSE 88 mg/dL (75-110); POTASSIUM 3.9 mmol/L (3.6-5.0); TOTAL PROTEIN 7.4 g/dL (6.3-8.2)
[2020-01-16] MEDS ORDERED: MAGNESIUM CITRATE 296 ML BOTTLE PO ONE (12:27)
[2020-01-16] MEDS ORDERED: MINERAL OIL 30 ML UDCUP PR ONE (12:28)
--- NOTE | 2020-01-16 12:45 | RADIOLOGY REPORT (SQ) ---
EXAM DESCRIPTION: CHEST SINGLE VIEW IMAGES COMPLETED DATE/TIME: 01/16/2020 12:31 pm REASON FOR STUDY: dizzy COMPARISON: 11/15/2019 EXAM PARAMETERS: NUMBER OF VIEWS: One view. TECHNIQUE: Single frontal radiographic view of the chest acquired. RADIATION DOSE: NA LIMITATIONS: None. FINDINGS: LUNGS AND PLEURA: There appear to be chronic interstitial changes on the left. No acute i nfiltrate, effusion, or mass. MEDIASTINUM AND HILAR STRUCTURES: No masses. Contour normal. HEART AND VASCULAR STRUCTURES: Heart normal in size. Normal vasculature. BONES: No acute findings. HARDWARE: None in the chest. OTHER: No other significant finding. IMPRESSION: Chronic lung changes with no acute cardiopulmonary finding. TECHNICAL DOCUMENTATION: JOB ID: [id number] 2010 [employer]- All Rights Reserved Reading location - IP/workstation name: [email or web address]
[2020-01-16] MEDS ORDERED: MAG HYDROX/AL HYDROX/SIMETH SUSP 30 ML UDCUP PO ONE (12:47)
[2020-01-16] MEDS ORDERED: METOCLOPRAMIDE HCL ORAL SOLN 10 MG/10 ML UDCUP PO ONE (12:47)
--- NOTE | 2020-01-16 12:49 | ER Document Report ---
ED GI/ - General Chief Complaint: Abdominal Pain >50 Stated Complaint: DIZZINESS Time Seen by Provider: 01/16/20 11:07 Primary Care Provider: RONN CARRANZA MD [Primary Care Provider] - Follow up tomorrow Mode of Arrival: Ambulatory Information source: Patient Notes: 54-year-old male presented to ED for complaint of abdominal pain nausea and vomiting diarrhea. He states he had a cookout at home last night with a bunch of his friends and he drank about 5 or 6 beers during this cookout ate a lot of pork and sausage when he went to bed he started having severe abdominal pain nausea this morning he had some nausea vomiting and diarrhea and felt very dizzy and more pain when he moved. He is alert oriented respirations regular and unlabored speaking in full sentences. He states that he is actually feeling a little better now he just feels hungry and thirsty. He states he feels very dehydrated. TRAVEL OUTSIDE OF THE [place] IN LAST 30 DAYS: No - HPI Patient complains to provider of: Abdominal pain, Vomiting Onset: Yesterday Timing/Duration: Gradual Quality of pain: Cramping Severity at maximum: Moderate Severity in ED: Moderate Pain Level: 3 Context: Other - Generalized aches he ate pork roast sausage and beer last night then a couple hours later started having pain nausea and vomiting Location: Other Associated symptoms: Diarrhea, Dizzy, Nausea, Vomiting Exacerbated by: Movement Relieved by: Denies Similar symptoms previously: Yes Recently seen / treated by doctor: No - Related Data Allergies/Adverse Reactions: aspirin [Aspirin] Allergy (Severe, Verified 11/15/19 00:29) RASH/itching Past Medical History - General Information source: Patient - Social History Smoking Status: Current Every Day Smoker Cigarette use (# per day): Yes Smoking Education Provided: Yes - 4 minutes Frequency of alcohol use: Social - 5 or 6 beers last night Drug Abuse: Marijuana Lives with: Family Family History: Arthritis, CAD, CVA, DM, Hypertension, Malignancy. denies: [place] PD, Hyperlipidemia, Thyroid Disfunction Patient has homicidal ideation: No - Past Medical History Cardiac Medical History: Reports: Hx Hypertension Pulmonary Medical History: Reports: Hx Asthma EENT Medical History: Reports: None Neurological Medical History: Reports: None Endocrine Medical History: Reports: None Renal/ Medical History: Reports: None Malignancy Medical History: Reports None GI Medical History: Reports: Hx Gastroesophageal Reflux Disease Musculoskeletal Medical History: Reports Hx Arthritis - SARCOIDOSIS, Reports Hx Musculoskeletal Deformity, Reports Hx Musculoskeletal Trauma Skin Medical History: Reports Hx Psoriasis Psychiatric Medical History: Reports: None Traumatic Medical History: Reports: Hx Fractures Infectious Medical History: Reports: None Past Surgical History: Reports: Hx Tonsillectomy - Immunizations Immunizations up to date: Yes Hx Diphtheria, Pertussis, Tetanus Vaccination: Yes - <5 years Hx Pneumococcal Vaccination: 05/31/14 Review of Systems - Review of Systems Constitutional: No symptoms reported EENT: No symptoms reported Cardiovascular: Dizziness - Patient states due to dehydration from nausea vomiting and diarrhea she is feeling much better Respiratory: No symptoms reported Gastrointestinal: Abdominal pain, Diarrhea, Nausea, Vomiting Genitourinary: No symptoms reported Male Genitourinary: No symptoms reported Musculoskeletal: No symptoms reported Skin: No symptoms reported Hematologic/Lymphatic: No symptoms reported Neurological/Psychological: No symptoms reported -: Yes All other systems reviewed and negative Physical Exam - Vital signs Vitals: Temp 98.4 F 01/16/20 11:04 Interpretation: Normal - General General appearance: Appears well, Alert - HEENT Head: Normocephalic, Atraumatic Eyes: Normal Pupils: PERRL - Respiratory Respiratory status: No respiratory distress Chest status: Nontender Breath sounds: Normal Chest palpation: Normal - Cardiovascular Rhythm: Regular Heart sounds: Normal auscultation Murmur: No - Abdominal Inspection: Normal Distension: No distension Bowel sounds: Hyperactive Tenderness: Tender Organomegaly: No organomegaly - Back Back: Normal, Nontender - Extremities General upper extremity: Normal inspection, Nontender, Normal color, Normal ROM, Normal temperature General lower extremity: Normal inspection, Nontender, Normal color, Normal ROM, Normal temperature, Normal weight bearing. No: Curt's sign - Neurological Neuro grossly intact: Yes Cognition: Normal Orientation: AAOx4 Delfino Coma Scale Eye Opening: Spontaneous [place] Coma Scale Verbal: Oriented [place] Coma Scale Motor: Obeys Commands Delfino Coma Scale Total: 15 Speech: Normal Motor strength normal: LUE, RUE, LLE, RLE Sensory: Normal - Psychological Associated symptoms: Normal affect, Normal mood - Skin Skin Temperature: Warm Skin Moisture: Dry Skin Color: Normal Course - Re-evaluation Re-evalutation: 01/17/20 00:10 Patient was treated with IV fluids and Zofran. The stool medication was made on air to his chart he did not get those. He states he felt much better after the IV fluids and Zofran and was discharged home to follow-up with his primary care. He had 6-8 beers last night with pork sausage and pork roast and then started with abdominal pain nausea vomiting and diarrhea a couple hours after that. - Vital Signs Vital signs: Temp Pulse Resp BP Pulse Ox 98.7 F 67 20 173/106 H 97 01/16/20 14:30 01/16/20 11:07 01/16/20 14:30 01/16/20 14:30 01/16/20 14:30 - Laboratory Result Diagrams: 01/16/20 11:38 01/16/20 11:38 Laboratory results interpreted by me: 01/16/20 01/16/20 01/16/20 11:38 11:38 13:21 WBC 3.5 L RBC 4.33 L Creatinine 1.34 H Est GFR (MDRD) Non-Af 55 L Urine Protein 30 H Urine Urobilinogen 2.0 H - Diagnostic Test Radiology reviewed: Image reviewed, Reports reviewed Discharge - Discharge Clinical Impression: Nausea vomiting and diarrhea Abdominal pain Qualifiers: Abdominal location: generalized Qualified Code(s): R10.84 - Generalized abdominal pain Condition: Stable Disposition: HOME, SELF-CARE Additional Instructions: ABDOMINAL PAIN: There are many causes of abdominal pain. Pain can mean a serious problem requiring surgery (such as appendicitis). It can also be an innocent problem that goes away on its own (such as a viral infection). Often, time must pass to determine the cause of pain. The physician does not feel that hospitalization is necessary, at present. Things may change within the next 24 hours. Call the doctor or come back for re- examination if any problems occur, such as: (1) Pain that becomes more severe, steady, or becomes concentrated in one specific area. Also, pain that is more severe with movement or coughing. (2) Vomiting that persists or becomes more frequent. (3) Blood in the vomitus, urine, or bowel movements. Blood in the stool may have a tarry or black appearance. (4) Shaking chills or fever greater than 100 degrees F. (5) The abdomen becomes more distended or swollen. (6) Bowel movements cease. (7) Failure to improve as expected. VOMITING: Vomiting (or nausea without vomiting) can be caused by many other different problems. It can mean that something's wrong with the stomach, such as ulcers or inflammation or the intestinal tract, such as appendicitis. But it can also be a symptom of a problem that has nothing to do with the stomach or intestines. Vomiting is common with severe headaches, earaches, tonsillitis, and kidney infections, etc. We see it with pneumonia or heart attacks. Drugs can cause nausea and vomiting. Many abdominal problems cause vomiting; for example, gallstones, kidney stones, pancreatitis, and intestinal obstruction (blocked bowels). In most cases, curing the vomiting depends on fixing the problem that caused it. For temporary relief, we may use an anti-nausea medicine. For home use, we can prescribe suppositories, chewable pills, pills that dissolve in the mouth, or liquid anti-nausea drugs. If the vomiting seems to be caused by a problem in the stomach, acid-suppressing drugs may be prescribed as well. It's important to avoid dehydration. Sip small amounts of clear liquids (soft drinks, tea, broth, etc) . Try to take fluids frequently even if you are vomiting to prevent dehydration. Take increasing amounts of fluid and when liquids are being consumed successfully, advance to small amounts of bland food (toast, soups, mashed potatoes, etc.) until you are able to resume a regular diet. Avoid aspirin, tobacco, and alcohol. If the vomiting worsens, if the problem that's making you vomit worsens, or if there's evidence of bleeding in the stomach (such as black, tarry stool, or bloody or black vomit), you should return immediately. Also, return if abdominal pain worsens or becomes localized to one area or you develop high fever. Call your doctor if you aren't improved in 24 hours. DIARRHEA, NON-SPECIFIC: Diarrhea means frequent, watery stools. There are many causes. Any problem that keeps the intestinal tract from absorbing water from the stool can lead to diarrhea. A sudden new diarrhea problem is usually caused by a virus, food sensitivity, toxic bacteria, or drugs. In this case, we expect the problem to go away soon. Testing is done only if you seem seriously ill from the diarrhea. If you have chronic diarrhea, or diarrhea that keeps coming back, we need to find out why. Chronic diarrhea can be due to inflammation of the bowels such as Crohn's disease or ulcerative colitis, food sensitivity such as intolerance to lactose or wheat protein, irritable bowel syndrome, and other problems. If your diarrhea is a significant problem but it's not clear why you have it, we'll refer you to a specialist for further testing. During an episode of diarrhea, drink small amounts (two to six ounces) of clear liquids (soft drinks, sport drinks, herb teas, broth, etc). Take fluids frequently to prevent dehydration. It's usually not a problem to take mild anti- diarrhea medication such as Kaopectate or Pepto-Bismol. As the diarrhea eases, advance to small amounts of bland food (mashed potato, toast) for 24 hours. Call the physician if blood appears in your vomit or stool, if vomiting lasts longer than 24 hours, if the abdominal pain worsens or becomes localized to one area, if you develop high fever, or if you become lightheaded and weak. INTRAVENOUS (I V) FLUIDS: As part of your care today, you received intravenous (IV) fluids. IV fluids are administered to patients who are dehydrated or to those who have certain chemical (electrolyte) abnormalities that need correcting. ANTINAUSEA MEDICATION: You have been given a medication to suppress nausea and vomiting. This type of medication can be given as a shot, pill, or suppository. It will usually last for many hours. Pills and shots usually last six to eight hours. For the typical illness, only one or two doses of the medication may be necessary. Mild lightheadedness may occur. This type of medicine can cause drowsiness. Do not drive or operate dangerous machinery while under its influence. Do not mix with alcohol. See your doctor at once if you have muscle spasms or tightness, or uncont rollable motions (particularly of the neck, mouth, or jaw). Persistent vomiting or severe lightheadedness should also be evaluated by the physician. REGLAN (METOCLOPRAMIDE): Reglan has been prescribed. This medicine affects the stomach and intestines. It can be used to treat nausea and vomiting, to prevent reflux of stomach acid up into the esophagus, or to increase the contractions of the stomach and intestines. It is often prescribed for esophagitis, and for paralysis of the stomach in diabetics. Reglan can cause either mild restlessness or drowsiness. You should contact the doctor at once if you become extremely restless, anxious, or cannot sleep, or if you develop uncontrollable motions of the lips, tongue, or jaw. Do not take alcohol with this medicine. Do not drive or operate machinery until you have been taking this medicine long enough to know how it affects you. Call the doctor if you develop abdominal pains, lightheadedness, black stool, or blood in the stool or vomitus. You state you are feeling much better at this time and you are ready to go home. You have had 2 L of fluids antinausea medicine Reglan Maalox and you are eating peanut butter and crackers and drinking juice without difficulty. Given you a copy of your labs to follow-up with your primary care doctor as well as a copy of your x-ray. Please take these to your primary doctor to follow- up. Please make sure to keep your follow-up appointment with your surgeon and your mental health provider for your depression. Please call your primary care doctor in the next couple days to schedule any new appointments you need. FOLLOW-UP CARE: If you have been referred to a physician for follow-up care, call the physicians office for an appointment as you were instructed or within the next two days. If you experience worsening or a significant change in your symptoms, notify the physician immediately or return to the Emergency Department at any time for re-evaluation. Prescriptions: Ondansetron [Zofran Odt 4 mg Tablet] 1 tab PO Q6H #15 tab.rapdis Forms: Elevated Blood Pressure, Smoking Cessation Education Referrals: RONN CARRANZA MD [Primary Care Provider] - Follow up tomorrow
[2020-01-16] MEDS: RINGERS SOLUTION,LACTATED 1,000 ML IV PRN ×2 (13:05→13:42)
--- NOTE | 2020-01-16 13:10 | RADIOLOGY REPORT (SQ) ---
EXAM DESCRIPTION: KUB/ABDOMEN (SINGLE VIEW) IMAGES COMPLETED DATE/TIME: 01/16/2020 12:40 pm REASON FOR STUDY: abdominal pain COMPARISON: None. NUMBER OF VIEWS: One view. TECHNIQUE: Supine radiographic image of the abdomen acquired. LIMITATIONS: None. FINDINGS: BOWEL GAS PATTERN: Normal bowel gas pattern. No dilated loops. CALCIFICATIONS: No suspicious calcifications. SOFT TISSUES: No gross mass or suggestion of organomegaly. HARDWARE: None in the abdomen. BONES: No acute fracture. No worrisome bone lesions. OTHER: No other significant finding. IMPRESSION: NO RADIOGRAPHIC EVIDENCE FOR ACUTE ABDOMINAL DISEASE. TECHNICAL DOCUMENTATION: JOB ID: [id number] 2010 [employer]- All Rights Reserved Reading location - IP/workstation name: [email or web address]
[2020-01-16 13:39] LABS: APPEARANCE,URINE CLEAR; BILIRUBIN,URINE NEGATIVE (NEGATIVE); COLOR,URINE YELLOW; GLUCOSE, URINE NEGATIVE (NEGATIVE); KETONES,URINE NEGATIVE (NEGATIVE); LEUKOCYTE ESTERASE,URINE NEGATIVE (NEGATIVE); NITRITE,URINE NEGATIVE (NEGATIVE); PROTEIN,URINE 30 mg/dL (NEGATIVE)
[2020-01-16 13:54] LABS: URINE AMPHETAMINES SCREEN NEGATIVE; URINE BARBITURATES SCREEN NEGATIVE; URINE BENZODIAZEPINES SCREEN NEGATIVE; URINE METHADONE SCREEN NEGATIVE; URINE PHENCYCLIDINE SCREEN NEGATIVE
[2020-01-16 13:58] LABS: URINE COCAINE SCREEN UNCONFIRMED POSITIVE; URINE MARIJUANA (THC) SCREEN UNCONFIRMED POSITIVE
--- NOTE | 2020-01-16 14:17 | EKG REPORT ---
SEVERITY:- ABNORMAL ECG - SINUS RHYTHM LEFT ANTERIOR FASCICULAR BLOCK LEFT VENTRICULAR HYPERTROPHY ANTERIOR Q WAVES, POSSIBLY DUE TO LVH : Confirmed by: Jasmin Anderson MD 16-Jan-2020 14:17:00
[2020-01-16 14:41] VITALS: BP 173/106
== END 2020-01-16 14:41 | disposition home or self-care (01) ==
LOC: ER 11:03
DX: R10.84 Generalized abdominal pain (principal); R11.2 Nausea with vomiting, unspecified; R19.7 Diarrhea, unspecified; R42 Dizziness and giddiness; M79.10 Myalgia, unspecified site; F17.210 Nicotine dependence, cigarettes, uncomplicated; I10 Essential (primary) hypertension; J45.909 Unspecified asthma, uncomplicated
CPT/HCPCS: 93005; 99406; 99284; 96361; 96374; 36415; 83690; 85025; 80053; 81001; 84484; 80307; 71045; 74018; 93010; J3490 ×2; J2405; J7120

== ENCOUNTER 2020-01-17 23:16 | Emergency (ER) | payer MEDICAID ==
--- NOTE | 2020-01-18 | ER Document Report ---
ED Medical Screen (RME) - General Chief Complaint: Suicidal Ideation Stated Complaint: POSSIBLE PSYCH Time Seen by Provider: 01/17/20 23:56 Primary Care Provider: RONN CARRANZA MD [Primary Care Provider] - Follow up as needed Mode of Arrival: Ambulatory Information source: Patient Notes: 54-year-old male presented to ED for suicidal thoughts. He states he has been having thoughts off and on since last May when he was diagnosed with prostate cancer. He states he went in for surgery and when he came home from surgery he was kicked out of his apartment. He states soon after that his significant other left. He states he has been trying to get help since then and he does not seem to be getting any help. He states he has used cocaine meth pills since that time. He states on January 04 of this year he lost his brother. He states last night he got some crystal meth and cocaine and was going to shoot himself up and kill himself but at the last moment he did not inject himself. He states he put it down when out in the [place] and when he woke up he had rash all over his head was all over his arms and legs. He states he has swelling to his arms and legs and head. He states he just does not have any reason to live anymore. He states he smokes a pack a day and has been drinking daily but does not drink today. I have greeted and performed a rapid initial assessment of this patient. A comprehensive ED assessment and evaluation of the patient, analysis of test results and completion of medical decision making process will be conducted by an additional ED providers. TRAVEL OUTSIDE OF THE [place] IN LAST 30 DAYS: No - Related Data Allergies/Adverse Reactions: aspirin [Aspirin] Allergy (Severe, Verified 11/15/19 00:29) RASH/itching Past Medical History - Social History Frequency of alcohol use: Heavy Drug Abuse: Cocaine, Methamphetamine, Prescription drugs Family history: Reviewed & Not Pertinent - Past Medical History Cardiac Medical History: Reports: Hx Hypertension Denies: Hx Coronary Artery Disease, Hx Heart Attack Pulmonary Medical History: Reports: Hx Asthma Denies: Hx Bronchitis, Hx COPD, Hx Pneumonia Neurological Medical History: Denies: Hx Cerebrovascular Accident, Hx Seizures Renal/ Medical History: Denies: Hx Peritoneal Dialysis GI Medical History: Reports: Hx Gastroesophageal Reflux Disease Musculoskeltal Medical History: Reports Hx Arthritis - SARCOIDOSIS, Reports Hx Musculoskeletal Deformity, Reports Hx Musculoskeletal Trauma Skin Medical History: Reports Hx Psoriasis Traumatic Medical History: Reports: Hx Fractures Past Surgical History: Reports: Hx Tonsillectomy - Immunizations Immunizations up to date: Yes Hx Diphtheria, Pertussis, Tetanus Vaccination: Yes - <5 years Physical Exam - Vital signs Vitals: Temp 98.7 F 01/17/20 23:17 Course - Vital Signs Vital signs: Temp Pulse Resp BP Pulse Ox 98.7 F 65 14 172/95 H 98 01/17/20 23:50 01/17/20 23:50 01/17/20 23:50 01/17/20 23:50 01/17/20 23:50 Doctor's Discharge - Discharge Referrals: RONN CARRANZA MD [Primary Care Provider] - Follow up as needed
[2020-01-18 00:36] LABS: ABSOLUTE EOSINOPHILS # (AUTO) 0.2 10^3/uL (0.0-0.6); ABSOLUTE MONOCYTES (AUTO) 0.4 10^3/uL (0.1-1.4); ABSOLUTE NEUT (AUTO) 2.8 10^3/uL (1.7-8.2); BASOPHILS % (AUTO) 0.4 % (0-2); EOSINOPHILS % (AUTO) 3.6 % (0-6); HEMATOCRIT 40.9 % (37.9-51.0); HEMOGLOBIN 14.5 g/dL (13.5-17.0); LYMPHOCYTES % (AUTO) 22.1 % (13-45); MEAN CORPUSCULAR HEMOGLOBIN 32.1 pg (27.0-33.4); MEAN CORPUSCULAR HGB CONC 35.4 g/dL (32.0-36.0); MEAN CORPUSCULAR VOLUME 91 fl (80-97); MONOCYTES % (AUTO) 9.6 % (3-13); PLATELET COUNT 178 10^3/uL (150-450); RED BLOOD COUNT 4.52 10^6/uL (4.35-5.55); RED CELL DISTRIBUTION WIDTH 13.8 % (11.5-14.0); SEGMENTED NEUTROPHILS % (AUTO) 64.3 % (42-78); TOTAL CELLS COUNTED % (AUTO) 100 %; WHITE BLOOD COUNT 4.3 10^3/uL (4.0-10.5)
[2020-01-18] MEDS ORDERED: PREDNISONE 20 MG TABLET PO ONE (01:09)
[2020-01-18] MEDS ORDERED: DIPHENHYDRAMINE HCL 50 MG CAPSULE PO ONE (01:09)
[2020-01-18 01:10] LABS: ALBUMIN 4.5 g/dL (3.5-5.0); ALKALINE PHOSPHATASE 86 U/L (38-126); ANION GAP 6 (5-19); ASPARTATE AMINO TRANSFERASE 30 U/L (17-59); BILIRUBIN,TOTAL 0.8 mg/dL (0.2-1.3); BLOOD UREA NITROGEN 13 mg/dL (7-20); CALCIUM 9.3 mg/dL (8.4-10.2); CARBON DIOXIDE 30 mmol/L (22-30); CHLORIDE 103 mmol/L (98-107); GLUCOSE 103 mg/dL (75-110); POTASSIUM 3.9 mmol/L (3.6-5.0); TOTAL PROTEIN 7.8 g/dL (6.3-8.2)
[2020-01-18 01:11] LABS: APPEARANCE,URINE CLEAR; BILIRUBIN,URINE NEGATIVE (NEGATIVE); COLOR,URINE YELLOW; GLUCOSE, URINE NEGATIVE (NEGATIVE); KETONES,URINE NEGATIVE (NEGATIVE); LEUKOCYTE ESTERASE,URINE NEGATIVE (NEGATIVE); NITRITE,URINE NEGATIVE (NEGATIVE); PROTEIN,URINE NEGATIVE (NEGATIVE); URINE SPECIFIC GRAVITY 1.013; UROBILINOGEN,URINE NEGATIVE mg/dL (<2.0)
[2020-01-18 01:13] LABS: ACETAMINOPHEN < 10 ug/mL (10-30); ALCOHOL < 10 mg/dL (NONE DETECTED); SALICYLATE < 1.0 mg/dL (2.0-20.0)
--- NOTE | 2020-01-18 01:22 | ER Document Report ---
ED Psych Disorder / Suicide - General Chief Complaint: Suicidal Ideation Stated Complaint: POSSIBLE PSYCH Time Seen by Provider: 01/17/20 23:56 Primary Care Provider: RONN CARRANZA MD [Primary Care Provider] - Follow up as needed Mode of Arrival: Ambulatory Notes: Patient is a 54-year-old male that comes to the emergency department for chief complaint of suicidal ideations. He states that he almost injected himself with both cocaine and methamphetamine hoping that it would kill him but he change his mind. He states that he has been depressed intermittently most of his life, he has been hospitalized at [facility] in the past for this, he also states that since last May when he was diagnosed with prostate cancer he has been worse. He states he doesn't know how he can go on and he needs help. He states that he slept in the [place] last night and he also has an itchy rash from this, he states he thinks he has poison shawanda. He also has a history of psoriasis and sarcoidosis. He is not on steroids. He is not on immunomodulators. He is not on chemotherapy or radiation. He states that he simply has a follow-up with urology in [place] for prostatectomy. He also has a history of hypertension. He does admit to using cocaine and methamphetamine intermittently trying to fight depression. He also states that he started drinking heavily for depression as well although he denies alcohol over the past day because he was unable to get to it. He also notes that his brother on January 04 with made him worse and after his cancer diagnosis his significant other left him. He denies homicidal ideations or hallucinations. TRAVEL OUTSIDE OF THE [place] IN LAST 30 DAYS: No - Related Data Allergies/Adverse Reactions: aspirin [Aspirin] Allergy (Severe, Verified 11/15/19 00:29) RASH/itching Past Medical History - General Information source: Patient - Social History Smoking Status: Current Every Day Smoker Frequency of alcohol use: Heavy Drug Abuse: Cocaine, Methamphetamine, Prescription drugs Family History: Arthritis, CAD, CVA, DM, Hypertension, Malignancy. denies: COPD, Hyperlipidemia, Thyroid Disfunction Patient has homicidal ideation: No - Past Medical History Cardiac Medical History: Reports: Hx Hypertension Denies: Hx Coronary Artery Disease, Hx Heart Attack Pulmonary Medical History: Reports: Hx Asthma Denies: Hx Bronchitis, Hx COPD, Hx Pneumonia Neurological Medical History: Denies: Hx Cerebrovascular Accident, Hx Seizures Renal/ Medical History: Denies: Hx Peritoneal Dialysis GI Medical History: Reports: Hx Gastroesophageal Reflux Disease Musculoskeletal Medical History: Reports Hx Arthritis - SARCOIDOSIS, Reports Hx Musculoskeletal Deformity, Reports Hx Musculoskeletal Trauma Skin Medical History: Reports Hx Psoriasis Traumatic Medical History: Reports: Hx Fractures Past Surgical History: Reports: Hx Tonsillectomy - Immunizations Immunizations up to date: Yes Hx Diphtheria, Pertussis, Tetanus Vaccination: Yes - <5 years Hx Pneumococcal Vaccination: 05/31/14 Review of Systems - Review of Systems Constitutional: No symptoms reported EENT: No symptoms reported Cardiovascular: No symptoms reported Respiratory: No symptoms reported Gastrointestinal: No symptoms reported Genitourinary: No symptoms reported Male Genitourinary: No symptoms reported Musculoskeletal: No symptoms reported Skin: See HPI Hematologic/Lymphatic: No symptoms reported Neurological/Psychological: See HPI Physical Exam - Vital signs Vitals: Temp 98.7 F 01/17/20 23:17 - Notes Notes: GENERAL: Patient is regularly scratching but otherwise he does not appear to be distressed. HEAD: Normocephalic, atraumatic. EYES: Pupils equal, round, and reactive to light. Extraocular movements intact. ENT: Oral mucosa moist, tongue midline. Oropharynx unremarkable. Airway patent. LUNGS: Clear to auscultation bilaterally, no wheezes, rales, or rhonchi. No respiratory distress. Non-tender chest wall. HEART: Regular rate and rhythm. No murmur ABDOMEN: Soft, non-tender. Non-distended. EXTREMITIES: Moves all 4 extremities spontaneously. No edema, normal radial and dorsalis pedis pulses bilaterally. No cyanosis. BACK: no cervical, thoracic, lumbar midline tenderness. No saddle anesthesia, normal distal neurovascular exam. Moves all extremities in full range of motion. NEUROLOGICAL: Alert and oriented x3. Normal speech. Cranial nerves II through XII grossly intact. Strength 5/5 in all extremities. PSYCH: Patient talks very quietly and looks down when talking about his situation but otherwise unremarkable. Not responding to internal stimuli. SKIN: Scattered raised erythematous lesions mainly on the posterior and distal legs, also noted on the arms and lower back. Also noted on the scalp. There are a few scattered vesicles with clear fluid. No pustules, bulla, induration, fluctuance, cellulitis, or other concerning findings noted. Course - Re-evaluation Re-evalutation: Patient has what appears to be poison shawanda with scattered raised erythematous patches with a few scattered vesicles. Patient cannot stop scratching. Patient spent the night in the [place]. No signs of a secondary infection at this time. Patient was given steroids and antihistamines for this. Patient is hypertensive but out of his blood pressure medications, these were looked up and prescribed tonight. Vital signs otherwise unremarkable. Physical examination otherwise unremarkable, patient calm, well-appearing. Because of patient's reported depression, suicidal ideations with plan, patient placed on IVC paperwork. Patient genuinely seems to be asking for help. Discussed with Dr. Villalba. CBC, chemistry, urinalysis unremarkable, alcohol negative, tox screen shows cocaine but this was reported by patient. EKG nonspecific. Patient with no chest pain, shortness of breath, or reported complaints on reevaluation. Patient is medically cleared pending mental health team evaluation. - Vital Signs Vital signs: Temp Pulse Resp BP Pulse Ox 98.7 F 65 14 172/95 H 98 01/17/20 23:50 01/17/20 23:50 01/17/20 23:50 01/17/20 23:50 01/17/20 23:50 - Laboratory Result Diagrams: 01/18/20 00:26 01/18/20 00:26 Laboratory results interpreted by me: 01/18/20 00:26 Salicylates < 1.0 L Acetaminophen < 10 L Discharge - Discharge Clinical Impression: Suicidal ideation, Homelessness Depression Qualifiers: Depression Type: unspecified Qualified Code(s): F32.9 - Major depressive disorder, single episode, unspecified Contact dermatitis Qualifiers: Contact dermatitis type: unspecified Contact dermatitis trigger: non-food plants Qualified Code(s): L25.5 - Unspecified contact dermatitis due to plants, except food Condition: Stable Disposition: PSYCH HOSP/UNIT Referrals: RONN CARRANZA MD [Primary Care Provider] - Follow up as needed
[2020-01-18 01:52] LABS: URINE AMPHETAMINES SCREEN NEGATIVE; URINE BARBITURATES SCREEN NEGATIVE; URINE BENZODIAZEPINES SCREEN NEGATIVE; URINE MARIJUANA (THC) SCREEN NEGATIVE; URINE METHADONE SCREEN NEGATIVE; URINE PHENCYCLIDINE SCREEN NEGATIVE
[2020-01-18 01:55] LABS: URINE COCAINE SCREEN UNCONFIRMED POSITIVE
[2020-01-18] MEDS ORDERED: HYDROCHLOROTHIAZIDE 25 MG TABLET PO SCH ×2 (02:45→04:00)
[2020-01-18] MEDS ORDERED: LISINOPRIL 10 MG TABLET PO SCH ×2 (02:45→04:00)
[2020-01-18] MEDS ORDERED: AMLODIPINE BESYLATE 10 MG TABLET PO SCH ×2 (03:00→04:00)
--- NOTE | 2020-01-18 07:49 | EKG REPORT ---
SEVERITY:- ABNORMAL ECG - SINUS ARRHYTHMIA, RATE 45-59 LEFT ANTERIOR FASCICULAR BLOCK PROBABLE LEFT VENTRICULAR HYPERTROPHY : Confirmed by: Jasmin Anderson MD 18-Jan-2020 07:48:33
[2020-01-18 18:45] VITALS: BP 138/72
== END 2020-01-18 19:15 | disposition home or self-care (01) ==
LOC: ER 23:16
DX: R45.851 Suicidal ideations (principal); Z59.0 Homelessness; F32.9 Major depressive disorder, single episode, unspecified; L25.5 Unspecified contact dermatitis due to plants, except food; F17.200 Nicotine dependence, unspecified, uncomplicated; I10 Essential (primary) hypertension; J45.909 Unspecified asthma, uncomplicated
CPT/HCPCS: 93005; 36415; 80307 ×4; 85025; 80053; 81001; 93010; J3490; J7512